=== PATIENT | female | born 1945 | race Caucasian/White ===

== ENCOUNTER → 2016-07-08 | Outpatient (CLI) | payer MEDICARE ==
--- NOTE | 2016-07-09 10:23 | MM ---
Reason for exam: screening (asymptomatic). Last mammogram was performed 18 years and 3 months ago. History: Patient is postmenopausal. Excisional biopsy of the right breast. Physical Findings: A clinical breast exam by your physician is recommended on an annual basis and results should be correlated with mammographic findings. MG 3D Screening Mammo W/Cad Bilateral CC and MLO view(s) were taken. No prior studies available for comparison. There are scattered fibroglandular densities. There is no discrete abnormality. ASSESSMENT: Negative, BI-RAD 1 RECOMMENDATION: Routine screening mammogram of both breasts in 1 year.
== END | disposition home or self-care (01) ==
LOC: RADMAMWWP 08:26
PROVIDERS: ATTEND Family Medicine
DX: Z12.31 Encounter for screening mammogram for malignant neoplasm of breast (principal)
CPT/HCPCS: 77052; 77063; G0202

== ENCOUNTER → 2016-08-24 | Outpatient (CLI) | payer MEDICARE ==
[2016-08-24 09:44] LABS: ALT 31 U/L (9-52); AST 25 U/L (14-36); Alkaline Phosphatase 82 U/L (38-126); Anion Gap 11 mmol/L; Blood Urea Nitrogen 18 mg/dL (7-17); Calcium 9.3 mg/dL (8.4-10.2); Carbon Dioxide 28 mmol/L (22-30); Chloride 103 mmol/L (98-107); Cholesterol 149 mg/dL (<200); Glucose 98 mg/dL (74-99); HDL Cholesterol 64 mg/dL (40-60); Non-African American GFR(MDRD) >60 (>60 ml/min/1.73 sqM); Potassium 4.4 mmol/L (3.5-5.1); Sodium 142 mmol/L (137-145); Total Protein 6.7 g/dL (6.3-8.2); Triglycerides 81 mg/dL (<150)
== END | disposition home or self-care (01) ==
LOC: LABWHC1 08:21
PROVIDERS: ATTEND Internal Medicine Interventional Cardiology
DX: E78.2 Mixed hyperlipidemia (principal)
CPT/HCPCS: 36415; 80053; 80061

== ENCOUNTER 2016-09-01 05:44 | Day surgery (SDC) | payer MEDICARE ==
[2016-08-28 15:48] VITALS: BMI 27.3
[2016-09-01] MEDS ORDERED: SODIUM CHLORIDE 0.9% 1,000 ML IV SCH ×2 (05:55→07:30)
[2016-09-01 06:55] VITALS: RESP 16
[2016-09-01] MEDS ORDERED: BENZOCAINE SPRAY 100 APPLIC/CAN MUCOUS MEM ONE ×2 (06:59→07:10)
[2016-09-01] MEDS ORDERED: PROPOFOL 10 MG/ML 20 ML VIAL IV ONE (06:59)
[2016-09-01] MEDS ORDERED: LIDOCAINE 1% INJ 10MG/ML (20 ML MDV) ONE (06:59)
--- NOTE | 2016-09-01 07:41 | ECHOT ---
DATE OF SERVICE: INDICATION: Evaluation left atrial appendage. PROCEDURE: After explaining the procedure to the patient, risk and the complications, blood pressure, heart rate, O2 saturation were monitored. The throat was sprayed with Cetacaine. She received sedation per anesthesia department. The probe was introduced in the esophagus without difficulty. Images were obtained. Following that, the probe was removed. There was no immediate complication. FINDINGS: Left atrial size is dilated measuring 5.1 cm. The left atrial appendage is normal. Left ventricular size is normal. There is evidence of global hypokinesis, estimated ejection fraction of 35%. The aortic valve, mitral valve, tricuspid valve and pulmonic valve are normal. Descending thoracic aorta appears to be normal. No pericardial effusion was noted. Contrast bubble study revealed no evidence of shunting across the interatrial septum. Doppler pulse wave and color Doppler obtained and revealed moderate mitral and tricuspid regurgitation. There was no evidence of shunting across the interatrial septum. CONCLUSION: 1. Dilated left atrium. 2. Normal left ventricular size with severe global hypokinesis. 3. Moderate mitral and tricuspid regurgitation with mild pulmonary hypertension. 4. No evidence of shunting across the interatrial septum. 5. Normal appearance of the descending thoracic aorta.
--- NOTE | 2016-09-01 07:57 | CE ---
DATE OF SERVICE: CARDIOVERSION PROCEDURE NOTE INDICATION: Atrial fibrillation. PROCEDURE: After explaining the procedure to the patient, its risks and complications, after obtaining sedation state per anesthesia department and performing transesophageal echocardiogram, a synchronized biphasic cardioversion using 200 joules, 300 joules and subsequent 360 joules was successful in restoring normal sinus rhythm. There was no immediate complication.
[2016-09-01] MEDS ORDERED: DABIGATRAN 150 MG CAP PO SCH (09:00)
[2016-09-01] MEDS ORDERED: TIMOLOL 0.5% OPHTH DROPS 5 ML BTL BOTH EYES SCH (09:00)
[2016-09-01] MEDS ORDERED: AMIODARONE 200 MG TAB PO SCH (09:00)
[2016-09-01] MEDS ORDERED: amLODIPine 2.5 MG TAB PO SCH (09:00)
[2016-09-01] MEDS ORDERED: HYDROCHLOROTHIAZIDE 25 MG TAB PO SCH (09:00)
[2016-09-01 12:55] VITALS: TEMP 97
[2016-09-01 13:02] VITALS: BP 125/69; PULSE 49
[2016-09-01] MEDS ORDERED: ATORVASTATIN 20 MG TAB PO SCH (21:00)
== END 2016-09-01 09:59 | disposition home or self-care (01) ==
LOC: CATHCVL 05:44
PROVIDERS: ATTEND Internal Medicine Interventional Cardiology
DX: I08.1 Rheumatic disorders of both mitral and tricuspid valves (principal); I27.2 Other secondary pulmonary hypertension; I51.7 Cardiomegaly; I48.2 Chronic atrial fibrillation; Z79.01 Long term (current) use of anticoagulants; I10 Essential (primary) hypertension; E78.2 Mixed hyperlipidemia; Z79.899 Other long term (current) drug therapy; Z88.8 Allergy status to other drugs, medicaments and biological substances
CPT/HCPCS: 93312; 93320; 93005; 93325; 92960; J2001; J2704

== ENCOUNTER → 2016-12-11 | Outpatient (CLI) | payer MEDICARE ==
[2016-12-11 09:13] LABS: CH 31.6; CHCM 33.6; HCT 41.8 % (34.0-46.0); HDW 2.46; HGB 14.2 gm/dL (11.4-16.0); MCHC 33.9 g/dL (31.0-37.0); MCV 94.5 fL (80.0-100.0); Mean Platelet Volume 7.3; RBC 4.43 m/uL (3.80-5.40); RDW 12.8 % (11.5-15.5); WBC 6.6 k/uL (3.8-10.6)
[2016-12-11 09:41] LABS: Anion Gap 9 mmol/L; Blood Urea Nitrogen 22 mg/dL (7-17); Calcium 9.2 mg/dL (8.4-10.2); Carbon Dioxide 29 mmol/L (22-30); Chloride 103 mmol/L (98-107); Glucose 98 mg/dL (74-99); Non-African American GFR(MDRD) >60 (>60 ml/min/1.73 sqM); Potassium 4.2 mmol/L (3.5-5.1); Sodium 141 mmol/L (137-145)
== END | disposition home or self-care (01) ==
LOC: LABWHC1 07:46
PROVIDERS: ATTEND Internal Medicine Clinical Cardiac Electrophysiology
DX: E04.8 Other specified nontoxic goiter (principal); I10 Essential (primary) hypertension; I42.0 Dilated cardiomyopathy; I48.1 Persistent atrial fibrillation; I49.3 Ventricular premature depolarization
CPT/HCPCS: 36415; 80048; 84439; 84443; 85027

== ENCOUNTER 2016-12-22 06:11 | Day surgery (SDC) | payer MEDICARE ==
[2016-12-18 09:49] VITALS: BMI 27.3
[2016-12-22] MEDS: SODIUM CHLORIDE 0.9% 1,000 ML IV SCH (06:49)
[2016-12-22] MEDS ORDERED: ePHEDrine 50 MG/ML 1 ML AMP ONE (07:22)
[2016-12-22] MEDS ORDERED: HEPARIN SODIUM,PORCINE/D5W PMX 25,000 UNIT/500 ML BAG IV ONE (07:22)
[2016-12-22] MEDS ORDERED: LIDOCAINE 1% INJ 10MG/ML (20 ML MDV) ONE (07:22)
[2016-12-22] MEDS ORDERED: PHENYLEPHRINE-0.9% NACL SYG 1 MG/10 ML SYRINGE ONE (07:22)
[2016-12-22] MEDS ORDERED: PROPOFOL 10 MG/ML 20 ML VIAL IV ONE (07:22)
[2016-12-22] MEDS ORDERED: fentaNYL (PF) 50 MCG/ML 2 ML AMP ONE (07:22)
[2016-12-22] MEDS ORDERED: ATROPINE SULFATE 0.1 MG/ML 10ML SYRINGE ONE (07:22)
[2016-12-22] MEDS ORDERED: ROCURONIUM BROMIDE 10 MG/ML 10 ML VIAL IV ONE (07:22)
[2016-12-22] MEDS ORDERED: SUCCINYLCHOLINE CHLORIDE 100 MG/5 ML SYR IV ONE (07:22)
[2016-12-22] MEDS ORDERED: FUROSEMIDE 10 MG/ML 2 ML VIAL ONE (07:22)
[2016-12-22] MEDS ORDERED: HEPARIN SODIUM 1,000 UNIT/ML VIAL ONE (07:22)
[2016-12-22] MEDS ORDERED: MIDAZOLAM 2 MG/2 ML VIAL ONE (07:22)
[2016-12-22] MEDS ORDERED: HEPARIN SODIUM,PORCINE 5,000 UNIT/ML 1 ML VIAL ONE (07:22)
[2016-12-22] MEDS ORDERED: LIDOCAINE 2% INJ 20 MG/ML SQ ONE (08:37)
[2016-12-22] MEDS ORDERED: LACTATED RINGERS 1,000 ML IV ONE (13:00)
[2016-12-22] MEDS ORDERED: HEPARIN SODIUM (1,000 UNIT/ML) 1,000 UNIT in SODIUM CHLORIDE 0.9% 1,000 ML IRRIGATION ONE (13:00)
[2016-12-22] MEDS ORDERED: IOHEXOL 350 MG/ML 100 ML BOTTLE INJ ONE ×3 (13:31)
--- NOTE | 2016-12-22 17:45 | P.PCN ---
Preoperative Diagnosis: Procedure A. fib ablation Indication Symptomatic persistent, recurrent atrial fibrillation that has failed Therapy and is associated with tachycardia mediated cardio myopathy Dilated left atrium 6.4 x 5.2 cm on intracardiac echo A. fib ablation details Pulmonary vein isolation, cryoablation, all 4 pulmonary veins to completely isolated Linear ablation, cavo tricuspid systems Linear ablation, roof of left atrium Linear ablation Anterior mitral isthmus line, just anterior to the left atrial appendage Focal ablation left atrial septum and right atrial septum in areas of fractionation and split potentials, resulting in organization to the tachycardia with atrial cycle length of about 320-340 ms, concentric activation Repeat mapping of SVT (atrial tachycardia), broad area of earliest activation around the os of the coronary sinus. RF energy application resulted in disorganization to atrial fibrillation Electrical cardioversion performed at this point Procedures performed Femoral artery cannulation for hemodynamic monitoring and sampling through the procedure, patient under general anesthesia Pulmonary vein isolation, [id number] CS pacing and recording 3-D mapping of the left atrium and right atrium, multiple 3-D maps including pulmonary vein mapping, left atrial mapping, cavo tricuspid isthmus mapped, right atrial map along with coronary sinus map Linear ablation, left atrial roof Linear ablation anterior mitral isthmus line Focal ablation left and right internal atrial septum 3-D mapping of the cavo tricuspid isthmus Linear ablation, right atrial flutter cavo tricuspid, isthmus conduction time greater than 160 ms 3-D activation mapping of the right atrium and coronary sinus followed by Focal ablation posterior low right atrium just posterior to the coronary sinus os Electrical cardioversion for atrial fibrillation Long procedure requiring multiple 3-D maps including portage mapping and activation mapping as well as multiple lenient and focal ablation areas, all distinct and separate finally resulting in organization of the atrial fibrillation around the os of the coronary sinus as described above Postoperative Diagnosis: Procedure(s) Performed: Implants: Condition: stable Disposition: floor Indications for Procedure: Operative Findings: Description of Procedure:
[2016-12-22] MEDS ORDERED: ACETAMINOPHEN TAB 325 MG TAB PO PRN (17:48)
[2016-12-22] MEDS ORDERED: ATORVASTATIN 20 MG TAB PO SCH (21:00)
[2016-12-22] MEDS: FAMOTIDINE 20 MG TAB PO SCH (22:52)
[2016-12-22] MEDS: DABIGATRAN 150 MG CAP PO SCH (22:52)
[2016-12-23] MEDS: SODIUM CHLORIDE 0.9% 1,000 ML IV SCH (06:10)
[2016-12-23 06:42] LABS: Basophils % (A) 0 %; CH 31.7; CHCM 32.9; Eosinophils % (A) 0 %; HCT 38.6 % (34.0-46.0); HDW 2.25; HGB 12.5 gm/dL (11.4-16.0); Luc # (Auto) 0.16; Luc % (Auto) 2; Lymphocytes # (A) 1.1 k/uL (1.0-4.8); Lymphocytes % (A) 11 %; MCH 31.5 pg (25.0-35.0); MCHC 32.5 g/dL (31.0-37.0); Mean Platelet Volume 7.7; Monocytes # (A) 0.8 k/uL (0-1.0); Monocytes % (A) 8 %; Neutrophils % (A) 80 %; RBC 3.98 m/uL (3.80-5.40); RDW 13.1 % (11.5-15.5); WBC 10.1 k/uL (3.8-10.6); WBC (Perox) 10.39
[2016-12-23 07:05] LABS: ALT 35 U/L (9-52); AST 75 U/L (14-36); Alkaline Phosphatase 64 U/L (38-126); Anion Gap 9 mmol/L; Blood Urea Nitrogen 19 mg/dL (7-17); Calcium 8.1 mg/dL (8.4-10.2); Carbon Dioxide 27 mmol/L (22-30); Chloride 103 mmol/L (98-107); Glucose 101 mg/dL (74-99); Magnesium 1.9 mg/dL (1.6-2.3); Non-African American GFR(MDRD) >60 (>60 ml/min/1.73 sqM); Potassium 3.5 mmol/L (3.5-5.1); Sodium 139 mmol/L (137-145); Total Bilirubin 1.3 mg/dL (0.2-1.3); Total Protein 5.6 g/dL (6.3-8.2)
[2016-12-23] MEDS: FAMOTIDINE 20 MG TAB PO SCH (08:20)
[2016-12-23] MEDS: DABIGATRAN 150 MG CAP PO SCH (08:20)
[2016-12-23] MEDS ORDERED: amLODIPine 2.5 MG TAB PO SCH (09:00)
[2016-12-23] MEDS ORDERED: HYDROCHLOROTHIAZIDE 25 MG TAB PO SCH (09:00)
[2016-12-23] MEDS ORDERED: TIMOLOL 0.5% OPHTH DROPS 5 ML BTL BOTH EYES SCH (09:00)
[2016-12-23] MEDS ORDERED: SPIRONOLACTONE 25 MG TAB PO SCH (09:15)
[2016-12-23 09:54] VITALS: RESP 20
[2016-12-23 16:24] VITALS: BP 112/80; PULSE 90; TEMP 97
--- NOTE | 2016-12-23 19:58 | CC ---
DATE OF SERVICE: Please see my summary procedure note that is dictated separately on Dragon. This is the full detailed description of the procedure. Mrs. Banegas has persistent drug-refractory atrial fibrillation with QT prolongation with cardiomyopathy, possibly tachycardia and also PVCs in sinus rhythm with a very wide QRS. She was brought in for atrial fibrillation ablation. The plan was to first proceed with pulmonary vein isolation and then subsequently linear and focal ablation as clinically indicated during the procedure. The patient was brought to the EP lab in a fasting state. Written informed consent was obtained prior to the procedure. The procedure was performed under general anesthesia. After initial muscle relaxant use, muscle relaxants were not given in order to be able to assess ( ) during the procedure. She was prepped and draped as per protocol. A full cryo setup with standard ( ) of the cry balloon and the cryo tools was performed. Femoral access was obtained in the right and left groins. Arterial access in the femoral artery was obtained for hemodynamic maintain and sampling. Her blood pressure remained stable throughout the procedure. Sampling was performed throughout the procedure, and this was removed at the end of the procedure. This was a very long procedure involving multiple pulmonary vein isolation for multiple linear and focal ablation sites which were distant and separate. Venous sheaths were placed in the right and left femoral veins. Diagnostic catheters were placed in the high right atrium, His bundle area, coronary sinus and the ventricle. Multiple catheters and multiple sheaths were used. Multiple exchanges were performed throughout the procedure, depending upon the nature of the ablation and mapping performed. First, intracardiac echocardiography was performed. The LV function was near normal. The left atrium was very dilated, 6.4 x 5.2 cm, depending upon the dimensions measured. Right and left transseptal catheterization was performed under intracardiac echo guidance. Access was obtained in the left atrium. ACT was maintained above 300. Finally when she was in sinus rhythm, she was in junctional rhythm for a long time, QRS 93 ms, QT 465 ms, AH interval 78 ms, HV interval 58 ms. Right and left transseptal catheterization was performed. RA pressure 9/3/6 and LA pressure 16/10/4 mmHg. First pulmonary vein isolation was performed using the cryoballoon and first the left superior followed by the left inferior followed by the right superior and then the right inferior veins sequentially were ablated. The left veins appeared to be common veins. For the superior vein 66 seconds followed by an 88-second cryolesion and then subsequently 104-second cryolesion was applied, with complete isolation of the pulmonary veins. The minimal ( ) temperature was 20.9 degrees Celsius in the esophagus; hence the abbreviated cryofreezes. The left inferior vein was then ablated with a 107- followed by 117-second lesion with complete isolation. Both superior and inferior veins showed entrance block at the end of this part of the procedure. Then the right-sided veins were ablated with phrenic nerve stimulation, and the phrenic nerve was intact during and after the end of this part of the procedure for the right superior vein. Two cryolesions were applied; 184 x 180 seconds and for the right inferior vein, 2 lesions, 180 and 180 seconds applied. Complete isolation and entrance block was demonstrated at the end of the procedure. Following this, the patient remained in atrial fibrillation without any significant organization. Therefore the cryosheath was exchanged once again for a regular long sheath and irrigated-tip RF ablation catheter was placed in the left atrium. Three-D mapping of the left atrium and pulmonary veins was performed. At first, voltage mapping of the pulmonary veins was performed, and it was demonstrated that the pulmonary veins were completely quiescent without any electrical activity. Next, the posterior and the anterior pineda of the left atrium were mapped, and more fractionated signals were noted along the inferior portions of the left atrium, especially in the anterior wall and the septum. Posteriorly the fractionated areas were closer to the coronary sinus area. Linear ablation was performed along the anterior roof of the LA connecting the right superior to the left superior veins. A complete anatomic line of block was made; however, atrial fibrillation continued with mild increase in organization of the atrial activity. Linear ablation was then performed anteriorly along the LA, avoiding the aortic root. This was the anterior mitral isthmus line from the roof to the mitral isthmus. Complete anatomic line was made. This resulted in slight increase in organization, but the atrial fibrillation continued. The next step in the mapping process was to ablate the fractionated areas along the septum. Then these areas were ablated (between the anterior antrum of the right superior veins and the transseptal puncture site), and the atrial fibrillation began to get organized. After completion of the lesion set on the left side of the septum, corresponding lesion sets were then applied on the right side of the septum, which resulted in further organization of the tachycardia. At this point we had to withdraw the catheter from the left atrium into the right atrium, and a 3-D map of the right atrium was then performed. Anatomic map of the right atrium was performed. RF applications were applied along the right side of the septum, resulting in further organization. Three-D mapping of the right atrial isthmus was performed with intracardiac ( ) and scar mapping and a linear ablation of the cavotricuspid isthmus was performed and a complete line of block was made. This resulted in further organization into an atrial tachycardia with a cycle length of about 338 ms. Following this, repeat mapping of the right atrium and the coronary sinus was performed. This was activation mapping to find the source of the tachycardia/source of atrial fibrillation. The earliest activation was noted around the mouth of the coronary sinus but not within it. This was more on the superior and the posterior aspects outside the coronary sinus os, bordering the os of the coronary sinus. When RF applications were applied here, the patient went back into atrial fibrillation. At this point, electrical cardioversion was performed and the patient successfully converted to sinus rhythm. Following this, an EP study was performed with pacing in the high right atrium and pacing in the coronary sinus. AH interval 78 ms, HV interval 58 ms. Brief pacing in the ventricle was performed. We did not note any PVCs. She was in junctional rhythm, and coronary sinus and atrial pacing was performed during this time. IV atropine, multiple doses, were given at this point. No atrial fibrillation induced with atrial pacing. NJ interval was 209 ms, QRS 135 ms. QT was 442 ms, sinus cycle length 872 ms. This was a very long procedure involving pulmonary vein isolation of all 4 veins followed by scar mapping of the left atrium (voltage mapping of the left atrium) and multiple maps of the right atrium for different tachycardias that were mapped, as described above. Pulmonary vein isolation, linear ablation along the roof of the LA, linear ablation along the anterior (mitral line), focal ablation along the septum, both right- and left-sided, linear ablation in the cavotricuspid isthmus for atrial flutter, and mapping and ablation around the posterior/inferior right atrium outside the coronary sinus os, followed ultimately by electrical cardioversion, were performed.
--- NOTE | 2016-12-23 20:05 | LTR ---
December 23, 2016 RE: Yessi Banegas Dear Unique Yessi Banegas underwent an extensive atrial fibrillation ablation involving successful pulmonary vein isolation of all 4 pulmonary veins followed by a linear ablation in the right and the left atria. Ultimately after multiple linear ablations (catheter-based Maze procedure), her atrial fibrillation organized to an atrial tachycardia that seemed to be originating deep in the area around the coronary sinus os. When I ablated this site, she went back into atrial fibrillation, and therefore at this point she was electrically cardioverted. I believe she has a deeper focus within the pineda of the coronary sinus in its very proximal portion and may require extensive ablation in this area in the future. Unfortunately drug therapy is not an optimal choice for her because her QT interval at baseline seems to be a little prolonged, and it was prolonged with amiodarone. Therefore even sotalol and dofetilide should not be used. In terms of use of flecainide, she does have sinus bradycardia, and this would result in further signaling of bradycardia and need for permanent pacing. Therefore at this point I think that watchful observation along with long-term anticoagulation should be her best option. Her intracardiac echo showed that her left atrium is significantly enlarged, almost greater than 6 cm in lateral dimension. I will also be recommending a cardiac MRI to assess her right and left ventricles, particularly the left ventricle, but of the PVCs she has. We have noted PVCs, especially when she is in sinus rhythm, and they have a very broad QRS width. She also develops cardiomyopathy with atrial fibrillation quite easily. We will definitely be keeping a close eye on Smitha and making further recommendations, depending upon her course. Thank you for entrusting us with the care of your patient. Warm regards. Sincerely, LESLI COLBY MD
--- NOTE | 2016-12-24 10:12 | DS ---
DATE OF ADMISSION: 12/22/2016 DATE OF DISCHARGE: 12/23/2016 Mrs. 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 Her QT interval is mildly prolonged even on amiodarone and therefore I have recommended that she come off amiodarone and also recommended that sotalol and dofetilide should not be used because they would also prolong her QT interval. When in sinus rhythm she has sinus bradycardia and therefore I also avoided flecainide use. In view of the fact that she develops tachycardia mediated cardiomyopathy with symptoms, an A. fib ablation was recommended. However, I had discussed with her at that because she has persistent atrial fibrillation the success rate is much lower than her paroxysmal atrial fibrillation. She underwent atrial fibrillation ablation with pulmonary vein isolation and linear atrial fibrillation ablation in the roof, anterior mitral annulus and focal ablation in the septum both on the left side as well as right side resulting in organization to an atrial tachycardia. She also underwent atrial flutter. This atrial tachycardia was mapped around the coronary sinus. It seemed to be a broad area of early activation around the mouth the coronary sinus rather than within it. When RF applications were delivered here, patient went back into atrial fibrillation and therefore, she was electrically cardioverted at that point and no further mapping was possible. She has been doing well. Overnight she did have period of ventricular bigeminy which she has known premature ventricular contractions also and the PVCs are described in my H&P seem to be identical in morphology to the ones experienced. However, the 12-lead ECG shows a very broad wide QRS PVCs most likely epicardial or deep myocardial focus. Her groins are healed well. She denies any chest discomfort. No undue shortness of breath. No chest discomfort. No pleuritic chest discomfort. No dizziness, lightheadedness. No swallowing problems. She has a mild cough without any expectoration. She is afebrile. Her vitals are stable. Blood pressure is 107/50 mmHg. Heart rates in the 60s. She is afebrile, 96.9 degrees Fahrenheit. Heart sounds are normal. No murmurs. No gallops. No rub. Breath sounds are normal and there are no rhonchi. No crackles. Abdomen is soft. Extremities are warm. Groin is healed well. No JVD. IMPRESSION: 1. Persistent atrial fibrillation, symptomatic and has failed antiarrhythmic drug therapy. 2. 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 3. Premature ventricular contractions that are evident during sinus rhythm. These PVCs have a left bundle branch block morphology and a very wide but with transition in V3. Upright QRSs in the inferior leads and fractionated negative QRSs in leads I and aVL. SUGGEST: Today she may go home. Her QT interval appears long to me even at baseline. On intracardiac echo her left atrial size is significantly enlarged between 5.2 to 6.4 cm depending upon the dimension being measured. Her LV function was near normal by intracardiac echo. Suggest discharge home on current medications. She will continue atorvastatin and amlodipine, but she must continue Pradaxa lifelong. Three days of colchicine have been prescribed in case she developed pleuritic chest pain. She will see Dr. Person in about 1 to 2 weeks. In view of the fact that she has developed this cardiomyopathy, it is possibly because of atrial fibrillation; however, her PVCs are extremely wide and she says her QT interval abnormality at baseline and therefore it would be prudent to get a cardiac MRI to see if this is truly a structurally normal myocardium or not. If not, then that would go against the diagnosis of tachycardia mediated cardiomyopathy. If she is stable she will be discharged home today.
== END 2016-12-23 19:39 ==
LOC: CATHEP 06:11 → 6SEL 14:49 → CATHEP 12-23 19:39
PROVIDERS: ATTEND Internal Medicine Clinical Cardiac Electrophysiology
DX: I48.1 Persistent atrial fibrillation (principal); I42.0 Dilated cardiomyopathy; I49.3 Ventricular premature depolarization; I49.5 Sick sinus syndrome; I10 Essential (primary) hypertension; E78.2 Mixed hyperlipidemia; H40.9 Unspecified glaucoma; Z79.02 Long term (current) use of antithrombotics/antiplatelets; Z79.899 Other long term (current) drug therapy; Z88.8 Allergy status to other drugs, medicaments and biological substances
CPT/HCPCS: 93613; 92960; 93662; 93656; 93657; 80053; 83735; 85025; C1894 ×4; C1769 ×4; C1730 ×3; C1759; C1893; C1733; C1766; C1732; J2001; Q9967; J1644

== ENCOUNTER → 2017-02-02 | Outpatient (CLI) | payer MEDICARE ==
[2017-02-02 09:56] LABS: ALT 27 U/L (9-52); AST 19 U/L (14-36); Alkaline Phosphatase 75 U/L (38-126); Anion Gap 9 mmol/L; Blood Urea Nitrogen 18 mg/dL (7-17); Calcium 9.3 mg/dL (8.4-10.2); Carbon Dioxide 27 mmol/L (22-30); Chloride 104 mmol/L (98-107); Cholesterol 138 mg/dL (<200); Glucose 91 mg/dL (74-99); HDL Cholesterol 58 mg/dL (40-60); Non-African American GFR(MDRD) >60 (>60 ml/min/1.73 sqM); Potassium 4.4 mmol/L (3.5-5.1); Sodium 140 mmol/L (137-145); Total Bilirubin 0.9 mg/dL (0.2-1.3); Total Protein 6.3 g/dL (6.3-8.2); Triglycerides 76 mg/dL (<150)
== END | disposition home or self-care (01) ==
LOC: LABWHC1 08:44
PROVIDERS: ATTEND Internal Medicine Interventional Cardiology
DX: E78.2 Mixed hyperlipidemia (principal)
CPT/HCPCS: 36415; 80053; 80061

== ENCOUNTER 2017-02-10 06:23 | Day surgery (SDC) | payer MEDICARE ==
[2017-02-05 10:16] VITALS: BMI 26.6
[2017-02-10] MEDS ORDERED: ASPIRIN 325 MG TAB PO ONE (06:29)
[2017-02-10] MEDS ORDERED: SODIUM CHLORIDE 0.9% 1,000 ML in EMPTY BAG 1 BAG IV ONE (06:29)
[2017-02-10 07:03] VITALS: TEMP 98.1
[2017-02-10 07:06] LABS: Basophils # (A) 0.1 k/uL (0-0.2); Basophils % (A) 1 %; CH 31.6; CHCM 33.7; Eosinophils # (A) 0.2 k/uL (0-0.7); Eosinophils % (A) 2 %; HCT 43.2 % (34.0-46.0); HDW 2.26; HGB 14.7 gm/dL (11.4-16.0); Luc # (Auto) 0.14; Luc % (Auto) 2; Lymphocytes # (A) 1.5 k/uL (1.0-4.8); Lymphocytes % (A) 20 %; MCV 94.2 fL (80.0-100.0); Mean Platelet Volume 7.3; Monocytes # (A) 0.6 k/uL (0-1.0); Monocytes % (A) 8 %; Neutrophils # (A) 5.1 k/uL (1.3-7.7); Neutrophils % (A) 67 %; RBC 4.59 m/uL (3.80-5.40); RDW 12.8 % (11.5-15.5); WBC 7.7 k/uL (3.8-10.6); WBC (Perox) 7.38
[2017-02-10] MEDS ORDERED: diphenhydrAMINE 50 MG/ML 1 ML VIAL ONE (07:31)
[2017-02-10] MEDS ORDERED: VERAPAMIL 2.5 MG/ML 2 ML AMP ONE (07:31)
[2017-02-10] MEDS ORDERED: fentaNYL (PF) 50 MCG/ML 2 ML AMP ONE (07:31)
[2017-02-10] MEDS ORDERED: LIDOCAINE 2% INJ 20 MG/ML (20 ML MDV) ONE (07:31)
[2017-02-10] MEDS ORDERED: diphenhydrAMINE 50 MG/ML 1 ML VIAL IVP ONE (07:38)
[2017-02-10] MEDS ORDERED: fentaNYL (PF) 50 MCG/ML 2 ML AMP IV ONE (07:38)
[2017-02-10] MEDS: METOPROLOL TARTRATE 5 MG/5 ML VIAL IVP ONE ×2 (07:40→08:12)
[2017-02-10] MEDS ORDERED: METOPROLOL TARTRATE 5 MG/5 ML VIAL IVP ONE (07:42)
[2017-02-10 08:32] LABS: Site SVC
[2017-02-10 08:33] LABS: Site RV BASELINE
[2017-02-10 08:33] LABS: Site RV
[2017-02-10 08:34] LABS: Site LOW RA; Site RT PA
[2017-02-10 08:34] LABS: Site HIGH RA; Site MID RA
[2017-02-10 08:35] LABS: Site FA
[2017-02-10 08:35] LABS: Site HIGH IVC
[2017-02-10 08:36] LABS: Site IVC
[2017-02-10] MEDS ORDERED: RX INFO: IV CONTRAST WAS GIVEN 1 EACH MISC MISCELLANE PRN (08:38)
[2017-02-10] MEDS ORDERED: guaiFENesin 600 MG TABLET.ER PO PRN (08:39)
[2017-02-10] MEDS ORDERED: LORATADINE 10 MG TAB PO PRN (08:39)
[2017-02-10] MEDS ORDERED: FAMOTIDINE 20 MG TAB PO PRN (08:39)
[2017-02-10] MEDS ORDERED: SODIUM CHLORIDE 0.9% 1,000 ML IV SCH (08:45)
[2017-02-10] MEDS ORDERED: amLODIPine 2.5 MG TAB PO SCH (09:00)
[2017-02-10] MEDS ORDERED: MULTIVITAMINS, THERA 1 EACH TAB PO SCH (09:00)
[2017-02-10] MEDS ORDERED: METOPROLOL TARTRATE 25 MG TAB PO SCH (09:00)
[2017-02-10] MEDS ORDERED: DABIGATRAN 150 MG CAP PO SCH (09:00)
[2017-02-10] MEDS ORDERED: SPIRONOLACTONE 25 MG TAB PO SCH (09:00)
[2017-02-10] MEDS ORDERED: TIMOLOL 0.5% OPHTH DROPS 5 ML BTL BOTH EYES SCH (09:00)
[2017-02-10 13:10] VITALS: BP 102/73; PULSE 110; RESP 18
[2017-02-10] MEDS ORDERED: ATORVASTATIN 20 MG TAB PO SCH (21:00)
--- NOTE | 2017-02-11 08:21 | CC ---
PROCEDURE PERFORMED: Right heart catheterization. Mrs. Banegas is a 71 year old female with a known history of atrial fibrillation and atrial flutter who was found to have evidence of atrial septal defect on cardiac MRI. She has history of dyspnea on exertion. In view of that, recommendation was made regarding right heart catheterization. The procedure as well as risks and complications were discussed with the patient who is in full understanding and agreement. PROCEDURE: The patient was brought to the manager cath lab in a fasting semisedated state. After she received Fentanyl and Benadryl, and after achieving moderate conscious sedated state, using guidewire exchange technique, the IV axis in the right brachial was exchanged for a 6 [place] sheath. Following that, right heart catheterization performed using [place] Jadyn catheter. Multiple samples and pressures were calculated. Following that, catheter and sheath were removed. Following that a femoral artery sample was obtained. Following that the patient was returned to her room in stable condition. There were no immediate complications. FINDINGS: SATURATION: Superior vena cava saturation of 65.9. Inferior vena cava of 71.9. High right atrium 69.3, low RA 67.6. Mid RA 68.8. RV 70.7. RV in flow 69.6. PA 70.5% and right pulmonary artery 69.5, capillary wedge of 98%, arterial saturation 95%. Cardiac output by thermal dilution of 4.0 L per minute and by Fredis of 4.7 L per minute. Pulmonary capillary wedge pressure V wave of 10, mean of 8 mmHg. Pulmonary artery systolic pressure of 20 with an end diastolic of 12 and a mean of 13 mmHg. Right ventricular systolic pressure of 22 with an end diastolic of 4. Right atrium V wave of 7 with a mean of 6 mmHg. There was no significant shunt. The shunt ratio was below 1.5. CONCLUSION: No evidence of significant shunting across the atrial septal defect. Duration of the procedure: 30 minutes. [facility]
== END 2017-02-10 11:52 | disposition home or self-care (01) ==
LOC: CATHCVL 06:23
PROVIDERS: ATTEND Internal Medicine Interventional Cardiology
DX: I48.1 Persistent atrial fibrillation (principal); Z79.01 Long term (current) use of anticoagulants; I48.92 Unspecified atrial flutter; I49.3 Ventricular premature depolarization; I42.9 Cardiomyopathy, unspecified; I10 Essential (primary) hypertension; E78.2 Mixed hyperlipidemia; H40.9 Unspecified glaucoma; Z79.899 Other long term (current) drug therapy; Z88.8 Allergy status to other drugs, medicaments and biological substances
CPT/HCPCS: 93451; 85018; 82810; 85025; 99152; 99153; C1769 ×3; C1751; C1894 ×2; J1200; J3010

== ENCOUNTER → 2017-08-16 | Outpatient (CLI) | payer MEDICARE ==
[2017-08-16 09:08] LABS: ALT 24 U/L (9-52); AST 22 U/L (14-36); Alkaline Phosphatase 76 U/L (38-126); Anion Gap 11 mmol/L; Blood Urea Nitrogen 20 mg/dL (7-17); Calcium 9.5 mg/dL (8.4-10.2); Carbon Dioxide 29 mmol/L (22-30); Chloride 101 mmol/L (98-107); Cholesterol 131 mg/dL (<200); Glucose 94 mg/dL (74-99); HDL Cholesterol 47 mg/dL (40-60); LDL Cholesterol,Calculated 72 mg/dL (0-99); Potassium 4.9 mmol/L (3.5-5.1); Sodium 141 mmol/L (137-145); Total Bilirubin 0.9 mg/dL (0.2-1.3); Total Protein 6.5 g/dL (6.3-8.2); Triglycerides 59 mg/dL (<150)
== END | disposition home or self-care (01) ==
LOC: LABWHC1 08:12
PROVIDERS: ATTEND Internal Medicine Interventional Cardiology
DX: E78.2 Mixed hyperlipidemia (principal)
CPT/HCPCS: 36415; 80053; 80061

== ENCOUNTER → 2018-02-17 | Outpatient (CLI) | payer MEDICARE | END | disposition home or self-care (01) | LOC: LABWHC1 07:47 | PROVIDERS: ATTEND Family Medicine | DX: E78.2 Mixed hyperlipidemia (principal); E04.8 Other specified nontoxic goiter; L65.9 Nonscarring hair loss, unspecified | CPT/HCPCS: 36415; 80061; 84443; 84450; 84460 ==

== ENCOUNTER → 2018-08-25 | Outpatient (CLI) | payer MEDICARE ==
[2018-08-25 18:11] LABS: Albumin 4.1 g/dL (3.80-4.90); Albumin/Globulin Ratio 2.56 (1.60-3.17); Anion Gap 10.8 mmol/L (4.00-12.00); Calcium 9.2 mg/dL (8.7-10.3); Carbon Dioxide 27.2 mmol/L (21.6-31.8); Globulin 1.6 g/dL (1.6-3.3); LDL Cholesterol,Calculated 73.8 mg/dL (0.0-131.0); Potassium 4.4 mmol/L (3.5-5.5); Total Bilirubin 0.6 mg/dL (0.2-1.2); Total Protein 5.7 g/dL (6.2-8.2); VLDL Calculation 11.2 mg/dL (5.00-40.00)
== END | disposition home or self-care (01) ==
LOC: LABWHC1 08:24
PROVIDERS: ATTEND Internal Medicine Interventional Cardiology
DX: E78.2 Mixed hyperlipidemia (principal)
CPT/HCPCS: 36415; 80053; 80061

== ENCOUNTER 2019-03-09 08:31 | Day surgery (SDC) | payer MEDICARE ==
[2019-03-03 11:23] VITALS: BMI 26.6
[~2019-03-09 08:31] MED LIST: LACTATED RINGERS 1,000 ML IV SCH; LIDOCAINE 1% 20 ML VIAL (10MG/ML) FOR IV START INTRADERMA PRN
[2019-03-09 09:09] VITALS: TEMP 97.9
[2019-03-09] MEDS ORDERED: LIDOCAINE 1% INJ 10MG/ML (20 ML MDV) ONE (09:41)
[2019-03-09] MEDS ORDERED: GLYCOPYRROLATE 0.2 MG/ML 2 ML VIAL ONE (09:41)
[2019-03-09] MEDS ORDERED: PROPOFOL 10 MG/ML 20 ML VIAL IV ONE (09:41)
--- NOTE | 2019-03-09 10:12 | P.GSHP ---
History of Present Illness H&P Date: 03/09/19 CHIEF COMPLAINT: Colon screen HISTORY OF PRESENT ILLNESS: The patient is a 73-year-old female who presents for colon screen. Lower endoscopy was offered for further evaluation and management. PAST MEDICAL HISTORY: Please see list. PAST SURGICAL HISTORY: Please see list. MEDICATIONS: Please see list. ALLERGIES: Please see list. SOCIAL HISTORY: No illicit drug use FAMILY HISTORY: No reports of Crohn disease or ulcerative colitis. REVIEW OF ORGAN SYSTEMS: CONSTITUTIONAL: No reports of fevers or chills. PHYSICAL EXAM: VITAL SIGNS: Stable GENERAL: Well-developed pleasant in no acute distress. HEENT: No scleral icterus. Extraocular movements grossly intact. Moist buccal mucosa. NECK: Supple without lymphadenopathy. CHEST: Unlabored respirations. Equal bilateral excursions. CARDIOVASCULAR: Regular rate and rhythm. Distal 2+ pulses. ABDOMEN: Soft, nontender, nondistended. MUSCULOSKELETAL: No clubbing, cyanosis, or edema. ASSESSMENT: 1. Colon screen. PLAN: 1. Recommend proceeding with a lower endoscopy Past Medical History Past Medical History: Atrial Fibrillation, Hyperlipidemia, Hypertension Additional Past Medical History / Comment(s): glaucoma (had sudrgery) History of Any Multi-Drug Resistant Organisms: None Reported Past Surgical History: Cardiac Ablation, Heart Catheterization, Tonsillectomy, Tubal Ligation Additional Past Surgical History / Comment(s): EYE SURGERY-GLAUCOMA. CARDIOVERSION X 3 Past Anesthesia/Blood Transfusion Reactions: No Reported Reaction Smoking Status: Never smoker - Past Family History Father Family Medical History: Cancer Additional Family Medical History / Comment(s): prostate and colon Son(s) Family Medical History: Cancer Medications and Allergies Home Medications Medication Instructions Recorded Confirmed Type Atorvastatin [Lipitor] 20 mg PO HS 01/06/14 03/09/19 History Dabigatran [Pradaxa] 150 mg PO DAILY 01/06/14 03/09/19 History amLODIPine [Norvasc] 2.5 mg PO DAILY 08/28/16 03/03/19 History Spironolactone [Aldactone] 25 mg PO DAILY #30 tab 12/23/16 03/09/19 Rx Multivitamins, Thera [Multivitamin 1 tab PO DAILY 02/05/17 03/09/19 History (formulary)] Metoprolol Tartrate 25 mg PO BID 02/10/17 03/03/19 History Allergies Allergy/AdvReac Type Severity Reaction Status Date / Time No Known Allergies Allergy Verified 03/03/19 11:14 Surgical - Exam Vital Signs Temp Pulse Resp BP Pulse Ox 97.9 F 46 L 16 117/68 98 03/09/19 08:57 03/09/19 08:57 03/09/19 08:57 03/09/19 08:57 03/09/19 08:57
--- NOTE | 2019-03-09 10:16 | P.PCN ---
Date of Procedure: 03/09/19 Description of Procedure: PREOPERATIVE DIAGNOSIS: Colonoscopy screening, first Family history of colon cancer, father POSTOPERATIVE DIAGNOSIS: Colonoscopy screening, first Family history of colon cancer, father Multiple tubular adenomas throughout the colon. Colon diverticulosis, scattered External hemorrhoids, grade 3. OPERATION: Colonoscopy to the ileocecal valve and appendiceal orifice. Colonoscopy with multiple cold forceps biopsies. SURGEON: Olamide Simms MD. ANESTHESIA: MAC. INDICATIONS: The patient is a 73-year-old female who presents for colonoscopy screening. This is her first. Benefits and risks were described and informed consent was obtained. DESCRIPTION OF PROCEDURE: The patient had undergone Gatorade, Suprep. She had been brought into the operating room and laid in the left lateral decubitus position. After adequate intravenous sedation, the rectum was examined with 2% lidocaine jelly. External hemorrhoids were encountered. The rectal tone was within normal limits. No lesions were palpated in the rectal vault. An Olympus colonoscope was advanced until the ileocecal valve and appendiceal orifice were clearly viewed. The prep was excellent. Scattered diverticulosis was encountered. Colonic polyps were found and cold forcep biopsy. No evidence of focal colitis was found. Retroflexion of the scope demonstrated grade 1 internal hemorrhoids without active bleeding or inflammation. The colon was desufflated. The patient had tolerated the procedure well. Withdrawal time was over 6 minutes. FINDINGS: Aronchick preparation quality scale 1 (1-5) Internal hemorrhoids, grade 1 External hemorrhoids, grade 3 No arteriovenous malformations, a few Scattered diverticulosis Removal of 2 polyps: - Cold forceps biopsy at distal transverse colon, 5 mm polyp. - Cold forceps biopsy at descending colon, 4 mm polyp. No focal colitis. RECOMMENDATIONS: Repeat colonoscopy in 3 years, 2021 Plan - Discharge Summary Discharge Rx Participant: No New Discharge Prescriptions: No Action Dabigatran [Pradaxa] 150 mg PO DAILY Atorvastatin [Lipitor] 20 mg PO HS amLODIPine [Norvasc] 2.5 mg PO DAILY Spironolactone [Aldactone] 25 mg PO DAILY #30 tab Multivitamins, Thera [Multivitamin (formulary)] 1 tab PO DAILY Metoprolol Tartrate 25 mg PO BID Discharge Medication List Atorvastatin [Lipitor] 20 mg PO HS 01/06/14 [History] Dabigatran [Pradaxa] 150 mg PO DAILY 01/06/14 [History] amLODIPine [Norvasc] 2.5 mg PO DAILY 08/28/16 [History] Spironolactone [Aldactone] 25 mg PO DAILY #30 tab 12/23/16 [Rx] Multivitamins, Thera [Multivitamin (formulary)] 1 tab PO DAILY 02/05/17 [History] Metoprolol Tartrate 25 mg PO BID 02/10/17 [History] Follow up Appointment(s)/Referral(s): Olamide Simms MD [STAFF PHYSICIAN] - As Needed Patient Instructions/Handouts: Colorectal Polyps (IP), Diverticulosis Diet (GEN), Diverticulosis (GEN) Activity/Diet/Wound Care/Special Instructions: Start blood thinner Mar 12. Repeat colonoscopy 3 years, 2021 Discharge Disposition: HOME SELF-CARE
[2019-03-09 10:33] VITALS: BP 137/84; PULSE 47; RESP 16
== END 2019-03-09 10:49 | disposition home or self-care (01) ==
LOC: ORWHC2ENDO 08:31
PROVIDERS: ATTEND Surgery Plastic and Reconstructive Surgery
DX: Z12.11 Encounter for screening for malignant neoplasm of colon (principal); D12.2 Benign neoplasm of ascending colon; D12.3 Benign neoplasm of transverse colon; K57.30 Diverticulosis of large intestine without perforation or abscess without bleeding; K64.0 First degree hemorrhoids; K64.4 Residual hemorrhoidal skin tags; I48.91 Unspecified atrial fibrillation; I10 Essential (primary) hypertension; E78.5 Hyperlipidemia, unspecified; Z98.51 Tubal ligation status; Z86.69 Personal history of other diseases of the nervous system and sense organs; Z90.89 Acquired absence of other organs; Z79.02 Long term (current) use of antithrombotics/antiplatelets; Z79.899 Other long term (current) drug therapy; Z98.890 Other specified postprocedural states; Z80.0 Family history of malignant neoplasm of digestive organs; Z80.42 Family history of malignant neoplasm of prostate
CPT/HCPCS: 88305; 45380; J2001; J2704

== ENCOUNTER → 2019-03-13 | Outpatient (CLI) | payer MEDICARE ==
[2019-03-13 07:32] LABS: Basophils # (A) 0.1 k/uL (0-0.2); Basophils % (A) 1 %; Eosinophils # (A) 0.3 k/uL (0-0.7); Eosinophils % (A) 3 %; HCT 41.4 % (34.0-46.0); HGB 13.7 gm/dL (11.4-16.0); Lymphocytes # (A) 1.8 k/uL (1.0-4.8); Lymphocytes % (A) 23 %; MCH 31.1 pg (25.0-35.0); MCHC 33.2 g/dL (31.0-37.0); MCV 93.5 fL (80.0-100.0); Mean Platelet Volume 6.9; Monocytes # (A) 0.6 k/uL (0-1.0); Monocytes % (A) 8 %; Neutrophils # (A) 4.7 k/uL (1.3-7.7); Neutrophils % (A) 61 %; Platelet Count 350 k/uL (150-450); RBC 4.42 m/uL (3.80-5.40); RDW 13.1 % (11.5-15.5); WBC 7.6 k/uL (3.8-10.6)
[2019-03-13 12:00] LABS: Albumin 4.3 g/dL (3.80-4.90); Albumin/Globulin Ratio 2.69 (1.60-3.17); Calcium 9.5 mg/dL (8.7-10.3); Chol/HDL Ratio 2.73; Globulin 1.6 g/dL (1.6-3.3); LDL Cholesterol,Calculated 79.2 mg/dL (0.0-131.0); Potassium 4.7 mmol/L (3.5-5.5); Total Bilirubin 0.7 mg/dL (0.3-1.2); Total Protein 5.9 g/dL (6.2-8.2); VLDL Calculation 15.8 mg/dL (5.00-40.00)
== END | disposition home or self-care (01) ==
LOC: LABWHC1 06:57
PROVIDERS: ATTEND Family Medicine
DX: I10 Essential (primary) hypertension (principal); E04.8 Other specified nontoxic goiter; E78.2 Mixed hyperlipidemia
CPT/HCPCS: 36415; 80053; 80061; 84439; 84443; 85025

== ENCOUNTER → 2019-09-13 | Outpatient (CLI) | payer MEDICARE ==
[2019-09-13 17:39] LABS: African American GFR (CKD) 85.4 (60.0-200.0); Albumin 4.3 g/dL (3.80-4.90); Albumin/Globulin Ratio 2.53 (1.60-3.17); Anion Gap 8.3 mmol/L (4.00-12.00); BUN/Creat Ratio 18.75 Ratio (12.00-20.00); Calcium 9.2 mg/dL (8.7-10.3); Carbon Dioxide 29.7 mmol/L (21.6-31.8); Chol/HDL Ratio 2.75; Globulin 1.7 g/dL (1.6-3.3); LDL Cholesterol,Calculated 82.6 mg/dL (0.0-131.0); Non-African American GFR(CKD) 73.7 (60.0-200.0); Potassium 4.3 mmol/L (3.5-5.5); Total Bilirubin 0.6 mg/dL (0.3-1.2); VLDL Calculation 13.4 mg/dL (5.00-40.00)
== END | disposition home or self-care (01) ==
LOC: LABWHC1 09:06
PROVIDERS: ATTEND Internal Medicine Interventional Cardiology
DX: E78.2 Mixed hyperlipidemia (principal)
CPT/HCPCS: 36415; 80053; 80061

== ENCOUNTER → 2020-04-01 | Outpatient (CLI) | payer MEDICARE ==
[2020-04-01 15:02] LABS: African American GFR (CKD) 100.3 (60.0-200.0); Albumin 4.1 g/dL (3.80-4.90); Albumin/Globulin Ratio 2.73 (1.60-3.17); Anion Gap 5.6 mmol/L (4.00-12.00); BUN/Creat Ratio 21.43 Ratio (12.00-20.00); Calcium 9.2 mg/dL (8.7-10.3); Carbon Dioxide 31.4 mmol/L (21.6-31.8); Chol/HDL Ratio 2.91; Globulin 1.5 g/dL (1.6-3.3); Non-African American GFR(CKD) 86.6 (60.0-200.0); Potassium 4.6 mmol/L (3.5-5.5); Total Bilirubin 0.6 mg/dL (0.2-1.2); Total Protein 5.6 g/dL (6.2-8.2)
== END | disposition home or self-care (01) ==
LOC: LABWHC1 08:31
PROVIDERS: ATTEND Internal Medicine Interventional Cardiology
DX: E78.2 Mixed hyperlipidemia (principal)
CPT/HCPCS: 36415; 80053; 80061

== ENCOUNTER → 2020-05-20 | Outpatient (CLI) | payer MEDICARE ==
[2020-05-21 03:40] LABS: Albumin 4.3 g/dL (3.80-4.90); Albumin/Globulin Ratio 2.39 (1.60-3.17); Anion Gap 9.2 mmol/L (4.00-12.00); BUN/Creat Ratio 25.56 Ratio (12.00-20.00); Calcium 9.4 mg/dL (8.7-10.3); Carbon Dioxide 27.8 mmol/L (21.6-31.8); Globulin 1.8 g/dL (1.6-3.3); Non-African American GFR(CKD) 63.9 (60.0-200.0); Potassium 4.7 mmol/L (3.5-5.5); Total Bilirubin 0.6 mg/dL (0.2-1.2); Total Protein 6.1 g/dL (6.2-8.2)
== END | disposition home or self-care (01) ==
LOC: LABMAIN 17:25
PROVIDERS: ATTEND Internal Medicine Interventional Cardiology
DX: D48.0 Neoplasm of uncertain behavior of bone and articular cartilage (principal)
CPT/HCPCS: 36415; 80053; 84443

== ENCOUNTER 2020-05-24 07:26 | Day surgery (SDC) | payer MEDICARE ==
[2020-05-23 10:51] VITALS: BMI 26.6
[~2020-05-24 07:26] MED LIST changes: -LACTATED RINGERS 1,000 ML IV SCH; -LIDOCAINE 1% 20 ML VIAL (10MG/ML) FOR IV START INTRADERMA PRN; +SODIUM CHLORIDE 0.9% 1,000 ML IV SCH
[2020-05-24 07:54] VITALS: TEMP 98.1
[2020-05-24] MEDS ORDERED: BENZOCAINE SPRAY 1 CAN MUCOUS MEM ONE ×2 (08:20→08:30)
[2020-05-24] MEDS ORDERED: PROPOFOL 10 MG/ML 20 ML VIAL IV ONE (08:25)
[2020-05-24] MEDS ORDERED: SODIUM CHLORIDE 0.9% 1,000 ML IV ONE (08:58)
[2020-05-24 09:10] VITALS: RESP 16
[2020-05-24] MEDS ORDERED: SODIUM CHLORIDE 0.9% 1,000 ML IV SCH (09:15)
--- NOTE | 2020-05-24 09:19 | ECHOT ---
TRANSESOPHAGEAL ECHOCARDIOGRAM INDICATION: Evaluation left atrial appendage. PROCEDURE: After explaining the procedure to the patient, its risks and complication, blood pressure, heart rate, O2 saturation was monitored. The throat was sprayed with Cetacaine. She received sedation per Anesthesia Department. The probe was introduced into the esophagus. Images were obtained, following that the probe was removed. There was no immediate complication. FINDINGS: Left atrial size is dilated. Left ventricular size is normal. There is evidence of severe global hypokinesis, estimated ejection fraction is 30% with global hypokinesis. The aortic valve revealed mild fibrocalcific changes of the aortic cusp with preserved opening, mitral valve revealed mild thickening of mitral valve leaflets. No pericardial effusion was noted. Contrast bubble study revealed no shunting across the interatrial septum. Doppler pulse wave and color Doppler obtained revealed moderate to severe mitral with mild to moderate tricuspid regurgitation. There was no shunting by color Doppler study. CONCLUSION: 1. Dilated left atrium with normal appearance left atrial appendage. 2. Normal left ventricular size with severe global hypokinesis. 3. Moderate to severe mitral with mild to moderate tricuspid regurgitation. 4. No shunting across the interatrial septum. 5. Normal appearance of the descending thoracic aorta. MMODL / IJN: [id number] /
--- NOTE | 2020-05-24 09:55 | CE ---
CARDIAC ELECTROPHYSIOLOGY REPORT CARDIOVERSION PROCEDURE NOTE: INDICATION: Atrial flutter, PROCEDURE: After stating the patient with risks and complications, blood pressure, heart rate, O2 saturation was monitored. After obtaining transesophageal echocardiogram, a synchronized biphasic cardioversion using 200 joules was performed with bahai of sinus mechanism. Initial rhythm was sinus bradycardia. There was no immediate complication. MMLUH / NEEMAN: [id number] /
[2020-05-24 10:30] VITALS: PULSE 48
[2020-05-24 10:31] VITALS: BP 103/64
[2020-05-24] MEDS ORDERED: ATORVASTATIN 20 MG TAB PO SCH (21:00)
[2020-05-24] MEDS ORDERED: DABIGATRAN 150 MG CAP PO SCH (21:00)
[2020-05-24] MEDS ORDERED: METOPROLOL TARTRATE 25 MG TAB PO SCH (21:00)
[2020-05-25] MEDS ORDERED: MULTIVITAMINS, THERA 1 EACH TAB PO SCH (09:00)
[2020-05-25] MEDS ORDERED: SPIRONOLACTONE 25 MG TAB PO SCH (09:00)
[2020-05-25] MEDS ORDERED: NON FORMULARY DRUG (Biotin [Biotin] 5,000 MCG Tab.Rapdis) PO SCH (09:00)
[2020-05-25] MEDS ORDERED: AMIODARONE 200 MG TAB PO SCH (09:00)
[2020-05-25] MEDS ORDERED: TIMOLOL 0.5% OPHTH DROPS 5 ML BTL BOTH EYES SCH (09:00)
== END 2020-05-24 10:48 | disposition home or self-care (01) ==
LOC: CATHCVL 07:26
PROVIDERS: ATTEND Internal Medicine Interventional Cardiology
DX: I08.1 Rheumatic disorders of both mitral and tricuspid valves (principal); I42.8 Other cardiomyopathies; I48.92 Unspecified atrial flutter; I48.0 Paroxysmal atrial fibrillation; I49.3 Ventricular premature depolarization; I10 Essential (primary) hypertension; E78.2 Mixed hyperlipidemia; Z79.899 Other long term (current) drug therapy; Z79.02 Long term (current) use of antithrombotics/antiplatelets; Z88.8 Allergy status to other drugs, medicaments and biological substances
CPT/HCPCS: 93312; 93320; 93325; 92960; J2704

== ENCOUNTER → 2020-08-05 | Outpatient (CLI) | payer MEDICARE ==
[2020-08-05 11:18] LABS: African American GFR (CKD) 84.8 (60.0-200.0); Albumin 4.5 g/dL (3.80-4.90); Albumin/Globulin Ratio 2.81 (1.60-3.17); Anion Gap 6.4 mmol/L (4.00-12.00); BUN/Creat Ratio 21.25 Ratio (12.00-20.00); Calcium 9.5 mg/dL (8.7-10.3); Carbon Dioxide 31.6 mmol/L (21.6-31.8); Chol/HDL Ratio 2.89; Globulin 1.6 g/dL (1.6-3.3); LDL Cholesterol,Calculated 88.6 mg/dL (0.0-131.0); Non-African American GFR(CKD) 73.1 (60.0-200.0); Potassium 4.7 mmol/L (3.5-5.5); Total Bilirubin 0.8 mg/dL (0.3-1.2); Total Protein 6.1 g/dL (6.2-8.2); VLDL Calculation 17.4 mg/dL (5.00-40.00)
== END | disposition home or self-care (01) ==
LOC: LABWHC1 07:42
PROVIDERS: ATTEND Internal Medicine Interventional Cardiology
DX: E78.2 Mixed hyperlipidemia (principal); I48.0 Paroxysmal atrial fibrillation
CPT/HCPCS: 36415; 80053; 80061; 84443

== ENCOUNTER → 2020-09-18 | Outpatient (CLI) | payer MEDICARE ==
[2020-09-18 10:23] LABS: HGB 13.2 gm/dL (11.4-16.0); MCH 32.6 pg (25.0-35.0); MCHC 33.9 g/dL (31.0-37.0); MCV 96.3 fL (80.0-100.0); Mean Platelet Volume 7.2; Platelet Count 275 k/uL (150-450); RBC 4.06 m/uL (3.80-5.40); RDW 12.7 % (11.5-15.5); WBC 6.4 k/uL (3.8-10.6)
[2020-09-18 10:45] LABS: Potassium 5.2 mmol/L (3.5-5.1)
== END | disposition home or self-care (01) ==
LOC: LABWHC1 08:43
PROVIDERS: ATTEND Internal Medicine Clinical Cardiac Electrophysiology
DX: Z01.812 Encounter for preprocedural laboratory examination (principal); I48.11 Longstanding persistent atrial fibrillation
CPT/HCPCS: 36415; 80051; 82565; 84520; 85027

== ENCOUNTER 2020-09-24 11:25 | Day surgery (SDC) | payer MEDICARE ==
[2020-09-20 12:09] VITALS: BMI 26.6
[2020-09-24] MEDS: SODIUM CHLORIDE 0.9% 1,000 ML IV SCH (12:05)
[2020-09-24] MEDS ORDERED: LIDOCAINE 1% INJ 10MG/ML (20 ML MDV) SQ ONE (13:22)
[2020-09-24] MEDS ORDERED: HEPARIN SOD,PORK IN 0.45% NACL 25,000 UNIT in 0.45% NACL 1 250ML.BAG IV ONE (15:30)
[2020-09-24] MEDS ORDERED: AMIODARONE 50 MG/ML 3 ML VIAL IV ONE (15:30)
[2020-09-24] MEDS ORDERED: LACTATED RINGERS 1,000 ML IV ONE (16:30)
[2020-09-24] MEDS ORDERED: HEPARIN SODIUM (1,000 UNIT/ML) 1,000 UNIT in SODIUM CHLORIDE 0.9% 1,000 ML IRRIGATION ONE (17:23)
[2020-09-24] MEDS ORDERED: DEXTROSE 5% IN WATER 100 ML BAG IV ONE (17:30)
[2020-09-24] MEDS ORDERED: PROTAMINE SULFATE 10 MG/ML 5 ML VIAL IV ONE ×2 (17:30→17:38)
[2020-09-24] MEDS ORDERED: ACETAMINOPHEN TAB 325 MG TAB PO PRN (17:43)
[2020-09-24] MEDS ORDERED: ACETAMINOPHEN IV (For NPO) 1,000 MG in EMPTY BAG 1 BAG IVPB ONE (18:00)
--- NOTE | 2020-09-24 18:01 | P.EPPROC ---
- EP Procedure Note Electrophysiology Procedure Note: Diagnosis Persistent atrial fibrillation that appears to be an atrial tachycardia Symptomatic Refractory to amiodarone Procedures performed RF ablation in the fossa ovalis RF ablation at the roof of the CS and above the CS between the lower part of the fossa ovalis in the coronary sinus RF ablation in the SVC septum RF ablation in the anterior inferior LA wall Patient underwent cardioversions through the procedure atrial arrhythmias followed by mapping This was a long procedure requiring a Pentaray catheter mapping and ablation catheter, multiple maps of the right atrium and of the left atrium Plan Antiarrhythmic drug therapy for suppression of slow cycle length atrial fibrillation Procedure details Patient was brought to the EP lab in a fasting state. Written informed consent was obtained prior to the procedure. The procedure was performed under conscious sedation. She was in sinus rhythm with a systolic study Venous sheaths were placed in the right and left femoral veins Diagnostic cath was placed in the high right atrium coronary sinus and His bundle area Baseline measurements were as follows Sinus cycle length 1412 ms, DC interval 174 ms, QRS 123 ms and QT interval 500 ms HV 58 ms Sinus recovery times at a pacing cycle length of 605 100 ms were 1824 and 1824 ms respectively. From the high right atrium it was 1651 ms. AV node Wenckebach block 420 ms An atrial tachycardia with earliest activation in the septum close in the His bundle electrodes, with burst ablation from the high right atrium However the tachycardia with change morphologies. Multiple different morphologies were noted these appear to be atrial tachycardia on surface ECG This tachycardia then degenerated into atrial fibrillation upon starting Isuprel, low-dose 3-D electro-anatomic mapping was performed The right atrium was mapped Scar mapped was performed In the previous ablation organization of atrial fibrillation was noted once RF ablation was performed in the septum A focal tachycardia was noted just outside and above the coronary sinus in the previous ablation His time with ultrasound we defined the fossa ovalis septum and also the coronary sinus RF ablation along the limbus of the fossa ovalis posteriorly and inferiorly and in the region between the coronary sinus and the lower aspect of the fossa ovalis Electrical cardioversion was then performed and EP study was performed to induce the atrial tachycardia Atrial tachycardia was induced to anatomic mapping was performed however this was an irregular atrial tachycardia and there was fluctuation in both the cycle length as well as the electrograms although the surface ECG looked like an atrial tachycardia An activation map was performed to get a sense of the approximate region involved and this was found to be in the septal aspect in the upper septum the base of the SVC close to the SVC RA junction. In fact at one point there was no mechanical termination of the tachycardia. RF ablation was applied in this region successfully However we were able to induce yet another tachycardia that was mapped to the lower part of the septum and RF ablation was performed in the right interatrial septum once again The tachycardia were changed into a different tachycardia Transseptal catheterization was performed LA pressure 25/2/26. His mercury Voltage map was performed of the left atrium The pulmonary veins were quiescent The left atrial roof was quiescent The tachycardia was mapped to the anterior inferior LA wall and RF ablation was applied here. However when the RV map was placed alongside this was the region of the His bundle on the right atrial side and therefore no further ablations were performed The DC interval between stable The patient continued to have multiple slow atrial arrhythmias that on the surface ECG appeared to be atrial tachycardia's but in essence, intracardiac electrograms showed subtle variability in cycle length as well as electrogram morphology This patient has slow atrial fibrillation, multiple different sources At the end of the procedure all sheaths were removed. Intracardiac echo showed absence of any pericardial effusion She tolerated the procedure well without any acute complications
[2020-09-24] MEDS: LACTATED RINGERS 1,000 ML IV SCH (19:54)
[2020-09-24] MEDS: HYDROcodone/APAP 5-325MG 1 EACH TAB PO PRN (19:55)
[2020-09-24] MEDS ORDERED: ATORVASTATIN 20 MG TAB PO SCH (21:00)
[2020-09-24] MEDS ORDERED: RIVAROXABAN 20 MG TAB PO SCH (21:00)
[2020-09-24] MEDS: METOPROLOL TARTRATE 12.5 MG TAB PO SCH ×3 (21:36→22:29)
[2020-09-25] MEDS: HYDROcodone/APAP 5-325MG 1 EACH TAB PO PRN (02:47)
[2020-09-25] MEDS: SODIUM CHLORIDE 0.9% 1,000 ML IV SCH (04:53)
[2020-09-25 07:22] VITALS: BP 112/70; PULSE 55; RESP 16; TEMP 97.7
[2020-09-25] MEDS: LACTATED RINGERS 1,000 ML IV SCH (08:44)
[2020-09-25] MEDS: METOPROLOL TARTRATE 12.5 MG TAB PO SCH (08:45)
[2020-09-25] MEDS ORDERED: AMIODARONE 100 MG TAB PO SCH (09:00)
[2020-09-25] MEDS ORDERED: SPIRONOLACTONE 25 MG TAB PO SCH (09:00)
[2020-09-25] MEDS ORDERED: TIMOLOL 0.5% OPHTH DROPS 5 ML BTL BOTH EYES SCH (09:00)
--- NOTE | 2020-09-25 12:14 | P.DS ---
Providers Attending physician: Efren Hassan Primary care physician: [facility] Course: Patient is resting comfortably in bed. She denies any chest discomfort no shortness of breath no dizziness or lightheadedness. She complained of palpitations the night and she was in A. fib with a ventricular rate of about 120 beats a minute. Since then she is back in sinus rhythm with a heart rate at 40 beats a minute narrow QRS normal NC interval On examination pulse rate is in the 50s, afebrile 97.70 Fahrenheit, blood pressure 112/70 mmHg Breath sounds are clear no rhonchi no crackles Normal heart sounds normal S1 normal S2 no murmurs no gallops no rub Abdomen is soft No hematoma in the groins bilaterally Impression history of persistent atrial fibrillation Status post A. fib ablation 2 years back with a PVI, linear ablation in the roof of the left atrium and linear ablation on the left side of the septum and ablation of the fossa ovalis area on the right atrium. At that time for atrial fibrillation really organized with right-sided septal ablation in the fossa ovalis and it appeared that she had an atrial tachycardia just outside of above the coronary sinus but the RF ablation the atrial tachycardia would repeatedly degenerate into atrial fibrillation Patient maintains sinus rhythm for about 2 years but had recurrence and is now on amiodarone On amiodarone she's had recurrences of atrial fibrillation I reduced the dose of amiodarone to 100 mg by mouth daily and Gottron from A. fib ablation The left atrial lesion set was intact. The pulmonary veins have remained isolated. The linear ablation in the roof is intact Irregular atrial tachycardia/atrial fibrillation was induced with EP study The right atrial septum was mapped with intracardiac echo and 3-D electro- anatomic mapping/voltage mapping RF ablation in the limbus of the fossa ovalis superiorly posteriorly and inferiorly, RF ablation between the os of the coronary sinus and lower portion of the limbus/fossa ovalis is performed RF ablation was performed just outside the roof of the coronary sinus She did have residual atrial fibrillation at EP study following RF ablation Plan Continue amiodarone 100 mg by mouth daily for about 2-3 months and then consider stopping especially if after 3 months she continues to have episodes of A. fib Continue beta blockers I would not recommend any further ablations at this point If after 3 months she continues to have episodes of atrial fibrillation then permanent pacemaker with high dose beta blockers is a consideration The QT interval is about 500 ms on low-dose amiodarone for the heart rate at 40 beats a minute Continue anticoagulation lifelong Patient Condition at Discharge: Stable Plan - Discharge Summary Discharge Rx Participant: No New Discharge Prescriptions: Continue Atorvastatin [Lipitor] 20 mg PO HS Spironolactone [Aldactone] 25 mg PO DAILY #30 tab Multivitamins, Thera [Multivitamin (formulary)] 1 tab PO DAILY Timolol 0.5% Ophth Soln [Timoptic 0.5% Ophth Soln] 1 drop BOTH EYES DAILY Amiodarone HCl [Pacerone] 100 mg PO DAILY Metoprolol Tartrate 12.5 mg PO BID Rivaroxaban [Xarelto] 20 mg PO HS Discharge Medication List Atorvastatin [Lipitor] 20 mg PO HS 01/06/14 [History] Spironolactone [Aldactone] 25 mg PO DAILY #30 tab 12/23/16 [Rx] Multivitamins, Thera [Multivitamin (formulary)] 1 tab PO DAILY 02/05/17 [History] Timolol 0.5% Ophth Soln [Timoptic 0.5% Ophth Soln] 1 drop BOTH EYES DAILY 05/23/20 [History] Amiodarone HCl [Pacerone] 100 mg PO DAILY 09/20/20 [History] Metoprolol Tartrate 12.5 mg PO BID 09/20/20 [History] Rivaroxaban [Xarelto] 20 mg PO HS 09/20/20 [History] Follow up Appointment(s)/Referral(s): Lee Ann Person MD [STAFF PHYSICIAN] - 1 Week Activity/Diet/Wound Care/Special Instructions: Post EP study - Ablation instructions 1. Keep access sites dry for 2 days. 2. No heavy lifting or straining for 2 days. 3. Avoid bending the hips repeatedly for 2 days. 4. You may go up and down stairs slowly Call if the following is noted 1. Bleeding, increasing swelling or pain at the access sites. 2. Increasing chest discomfort, especially upon taking a deep breath. 3. Increasing shortness of breath, at rest or with exertion. 4. Undue cough / phlegm 5. Difficulty or pain while swallowing. 6. Pain or change in color in the extremities. 7. Fever, chills, rigors. 8. Increasing headache or neurologic symptoms. 9. Dizziness, fainting, palpitations
== END 2020-09-25 14:41 | disposition home or self-care (01) ==
LOC: CATHEP 11:25 → 6NMEDSUR 17:36 → CATHEP 09-25 14:41
PROVIDERS: ATTEND Internal Medicine Clinical Cardiac Electrophysiology
DX: I47.1 Supraventricular tachycardia (principal); I48.19 Other persistent atrial fibrillation; I08.3 Combined rheumatic disorders of mitral, aortic and tricuspid valves; I49.3 Ventricular premature depolarization; I42.8 Other cardiomyopathies; E78.5 Hyperlipidemia, unspecified; I10 Essential (primary) hypertension; Z98.51 Tubal ligation status; Z98.890 Other specified postprocedural states; Z79.01 Long term (current) use of anticoagulants; Z79.899 Other long term (current) drug therapy; Z88.8 Allergy status to other drugs, medicaments and biological substances
CPT/HCPCS: 85347; 92960; 93623; 93662; 93613; 93653; C1894; C1769 ×4; C1766; C1730 ×2; C1731; C1759; C1732; J2720; J0282; J2001; J1644 ×2

== ENCOUNTER → 2020-11-22 | Outpatient (CLI) | payer MEDICARE ==
[2020-11-22 15:40] LABS: African American GFR (CKD) 73.5 (60.0-200.0); Albumin 4.2 g/dL (3.80-4.90); Albumin/Globulin Ratio 2.21 (1.60-3.17); Anion Gap 6.3 mmol/L (4.00-12.00); Calcium 9.4 mg/dL (8.7-10.3); Carbon Dioxide 29.7 mmol/L (21.6-31.8); Globulin 1.9 g/dL (1.6-3.3); Non-African American GFR(CKD) 63.4 (60.0-200.0); Potassium 5.1 mmol/L (3.5-5.5); Total Bilirubin 0.9 mg/dL (0.2-1.2); Total Protein 6.1 g/dL (6.2-8.2)
== END | disposition home or self-care (01) ==
LOC: LABWHC1 09:34
PROVIDERS: ATTEND Nurse Practitioner Adult Health
DX: I48.0 Paroxysmal atrial fibrillation (principal); I47.1 Supraventricular tachycardia
CPT/HCPCS: 36415; 80053; 84439; 84443

== ENCOUNTER → 2021-03-12 | Outpatient (CLI) | payer MEDICARE ==
[2021-03-12 23:14] LABS: Chol/HDL Ratio 3.12
== END | disposition home or self-care (01) ==
LOC: LABWHC1 08:26
PROVIDERS: ATTEND Nurse Practitioner Adult Health
DX: E78.2 Mixed hyperlipidemia (principal)
CPT/HCPCS: 36415; 80061; 84439; 84443; 84450; 84460

== ENCOUNTER → 2022-03-10 | Outpatient (CLI) | payer MEDICARE ==
[2022-03-10 11:20] LABS: ALT 16 U/L (8-44); AST 23 U/L (13-35); Chol/HDL Ratio 2.78 Ratio; LDL Cholesterol,Calculated 84.2 mg/dL (0.0-131.0)
== END | disposition home or self-care (01) ==
LOC: LABWHC1 07:40
PROVIDERS: ATTEND Internal Medicine Interventional Cardiology
DX: E03.2 Hypothyroidism due to medicaments and other exogenous substances (principal); E78.2 Mixed hyperlipidemia
CPT/HCPCS: 36415; 80061; 84443; 84450; 84460

== ENCOUNTER 2022-11-10 10:58 | Emergency (ER) | payer MEDICARE ==
[2022-11-10 11:17] VITALS: BP 111/35; PULSE 92; RESP 20; TEMP 97.7
[2022-11-10] MEDS ORDERED: MORPHINE SULFATE 2 MG/ML SYRINGE IM STA (12:46)
--- NOTE | 2022-11-10 14:20 | US ---
EXAMINATION TYPE: US venous doppler duplex LE LT DATE OF EXAM: 11/10/2022 1:35 PM COMPARISON: NONE CLINICAL INDICATION: Female, 77 years old with history of pain and swelling; Patient on Xeralto. SIDE PERFORMED: Left TECHNIQUE: The lower extremity deep venous system is examined utilizing real time linear array sonog yasmin with graded compression, doppler sonography and color-flow sonography. VESSELS IMAGED: Common Femoral Vein Deep Femoral Vein Greater Saphenous Vein * Femoral Vein Popliteal Vein Small Saphenous Vein * Proximal Calf Veins (* superficial vessels) Left Leg: Negative for DVT Incidental note is made of complex collection left pop fossa measuring 7.4 x 1.9 x 2.7 cm. This is h ypoechoic and mildly lobulated. No vascular flow is identified. IMPRESSION: 1. Left lower extremity ultrasound negative for deep venous thrombosis. 2. Left Popliteal masslike area. Underlying mass should be considered. MRI is recommended for additi onal evaluation.
--- NOTE | 2022-11-10 14:24 | XR ---
EXAMINATION TYPE: XR knee 4V LT DATE OF EXAM: 11/10/2022 COMPARISON: None HISTORY: Pain TECHNIQUE: Left knee is examined in 4 projections. FINDINGS: There is mild narrowing of the medial compartment joint space. There may be a small joint e ffusion. Patellofemoral joint space narrowing is present. No acute fracture is evident. Follow up exams can be performed 7-10 days of acute trauma for continue d pain. IMPRESSION: 1. 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 2. No acute fracture evident. 3. [id number] joint effusion.
[2022-11-10] MEDS ORDERED: traMADol 50 MG STARTER PACK 3 TAB BTL PO STA (15:01)
--- NOTE | 2022-11-10 15:04 | ED ---
Lower Extremity Injury HPI - General Chief Complaint: Extremity Injury, Lower Stated Complaint: Lt knee pain Time Seen by Provider: 11/10/22 12:40 Source: patient, family (Daughter), RN notes reviewed Mode of arrival: ambulatory Limitations: no limitations - History of Present Illness Initial Comments: Patient is a 77-year-old female presenting to the emergency room with complaints of worsening left knee pain. She reports that she has had chronic knee pain that has been bothersome for several years and has previously been advised that she will likely need a knee replacement but states over the last week she has had an increase in her chronic knee pain which became more severe yesterday evening with difficulty ambulating and pain with range of motion. She denies any injury, trauma or wounds. She has taken Tylenol for pain as she is on anticoagulation for atrial fibrillation and has been advised that she should not take NSAIDs; she reports no improvement in symptoms from Tylenol. She reports that range of motion limitations are secondary to pain. She has been utilizing a cane for ambulation over the last week. In addition to her history is she has a past medical history significant for hypertension, hyperlipidemia, glaucoma and osteoarthritis. - Related Data Home Medications Medication Instructions Recorded Confirmed Atorvastatin [Lipitor] 20 mg PO HS 01/06/14 09/24/20 Multivitamins, Thera [Multivitamin 1 tab PO DAILY 02/05/17 09/20/20 (formulary)] Timolol 0.5% Ophth Soln [Timoptic 1 drop BOTH EYES DAILY 05/23/20 09/24/20 0.5% Ophth Soln] Amiodarone HCl [Pacerone] 100 mg PO DAILY 09/20/20 09/24/20 Metoprolol Tartrate 12.5 mg PO BID 09/20/20 09/24/20 Rivaroxaban [Xarelto] 20 mg PO HS 09/20/20 09/24/20 Previous Rx's Medication Instructions Recorded Spironolactone [Aldactone] 25 mg PO DAILY #30 tab 12/23/16 traMADol HCL 50 mg PO Q6H PRN 3 Days #12 tab 11/10/22 Allergies Allergy/AdvReac Type Severity Reaction Status Date / Time No Known Allergies Allergy Verified 11/10/22 11:17 Review of Systems ROS Statement: Those systems with pertinent positive or pertinent negative responses have been documented in the HPI. ROS Other: All systems not noted in ROS Statement are negative. Past Medical History Past Medical History: Atrial Fibrillation, Hyperlipidemia, Hypertension, Osteoarthritis (OA) Additional Past Medical History / Comment(s): glaucoma (had surgery). History of Any Multi-Drug Resistant Organisms: None Reported Past Surgical History: Cardiac Ablation, Heart Catheterization, Tonsillectomy, Tubal Ligation Additional Past Surgical History / Comment(s): EYE SURGERY-GLAUCOMA. CARDIOVERSION X 3 Past Anesthesia/Blood Transfusion Reactions: No Reported Reaction Additional Past Anesthesia/Blood Transfusion Reaction / Comment(s): no hx blood transfusion Past Psychological History: No Psychological Hx Reported Smoking Status: Never smoker Past Alcohol Use History: None Reported Past Drug Use History: None Reported - Past Family History Father Family Medical History: Cancer Additional Family Medical History / Comment(s): prostate and colon Son(s) Family Medical History: Cancer General Exam Limitations: no limitations General appearance: alert, in no apparent distress Head exam: Present: atraumatic, normocephalic, normal inspection Eye exam: Present: normal appearance, PERRL, EOMI. Absent: scleral icterus, conjunctival injection, periorbital swelling ENT exam: Present: normal exam, mucous membranes moist Neck exam: Present: normal inspection, full ROM Respiratory exam: Absent: respiratory distress, accessory muscle use Cardiovascular Exam: Present: regular rate GI/Abdominal exam: Absent: distended, tenderness Left Knee exam: Present: tenderness, swelling, effusion. Absent: full ROM ( active range of motion limited by pain, full passive of range of motion), abrasion, laceration, ecchymosis, deformity, crepitus, dislocation, erythema Neurovascular tendon exam: Present: no vascular compromise Gait: observed and limited by pain Back exam: Present: normal inspection Neurological exam: Present: alert, oriented X3, CN II-XII intact Psychiatric exam: Present: normal affect, normal mood Skin exam: Present: warm, dry, intact, normal color. Absent: rash Course Vital Signs 11/10/22 11:14 Temperature 97.7 F Pulse Rate 92 Respiratory 20 Rate Blood Pressure 111/35 O2 Sat by Pulse 97 Oximetry Medical Decision Making - Medical Decision Making Was pt. sent in by a medical professional or institution (, PA, HAND PLUG SHAPER, urgent care, hospital, or group home...) When possible be specific @ -No Did you speak to anyone other than the patient for history (EMS, parent, family, police, friend...)? What history was obtained from this source @ -Yes, daughter at bedside confirming history of current illness provided by patient. Did you review nursing and triage notes (agree or disagree)? Why? @ -I reviewed and agree with nursing and triage notes Were old charts reviewed (outside hosp., previous admission, EMS record, old EKG, old radiological studies, urgent care reports/EKG's, group home records)? Report findings @ -No old charts were reviewed Differential Diagnosis (chest pain, altered mental status, abdominal pain women, abdominal pain men, vaginal bleeding, weakness, fever, dyspnea, syncope, headache, dizziness, GI bleed, back pain, seizure, CVA, palpatations, mental health, musculoskeletal)? @ -Differential Musculoskeletal Muscular strain, contusion, ligament sprain, fracture, arthritis, septic arthritis, bursitis, cellulitis, muscle spasm, nerve compression, DVT, arterial occlusion, herpes zoster, electrolyte abnormality, tumor.... This is not meant to be in all inclusive list EKG interpreted by me (3pts min.). @ -None done X-rays interpreted by me (1pt min.). @ -X-ray left knee: Degenerative joint changes with moderate joint effusion. CT interpreted by me (1pt min.). @ -None done U/S (1pt. min.). @ -Ultrasound venous Doppler left lower extremity report per radiologist, not interpreted by me, of lower extremity ultrasound negative for DVT left popliteal mass like area mildly lobular and hypoactive without vascular flow 7.4 x 1.9 x 2.7 cm. What testing was considered but not performed or refused? (CT, X-rays, U/S, labs)? Why? @ -None What meds were considered but not given or refused? Why? @ -None Did you discuss the management of the patient with other professionals (james wilson i.e. , PA, HAND PLUG SHAPER, lab, RT, psych nurse, professor of social work, green coffee blender, teacher, chief resource officer, telephonic nurse case manager)? Give summary @ -No Was smoking cessation discussed for >3mins.? @ -No Was critical care preformed (if so, how long)? @ -No Were there social determinants of health that impacted care today? How? (Homelessness, low income, unemployed, alcoholism, drug addiction, transportation, low edu. Level, literacy, decrease access to med. care, custodial, rehab)? @ -No Was there de-escalation of care discussed even if they declined (Discuss DNR or withdrawal of care, Hospice)? DNR status @ -No What co-morbidities impacted this encounter? (DM, HTN, Smoking, COPD, CAD, Cancer, CVA, ARF, Chemo, Hep., AIDS, mental health diagnosis, sleep apnea, morbid obesity)? @ -Osteoarthritis Was patient admitted / discharged? Hospital course, mention meds given and route, prescriptions, significant lab abnormalities, going to OR and other pertinent info. @ -77-year-old female presenting to the emergency room with worsening chronic left knee pain with effusion without any known trauma. On any able to take NSAIDs due to anticoagulation for atrial fibrillation. Will give morphine for pain. No indication for laboratory studies. Despite no trauma given effusion will obtain x-ray of knee along with ultrasound of the left lower extremity. Pain improved with morphine. X-ray shows degenerative changes with moderate effusion no acute osseous pathology. Ultrasound negative for DVT however lobular hypoactive mass noted likely underlying cause pain and effusion. No indication for further diagnostic imaging or laboratory studies at this time. Advised follow-up with primary care provider and orthopedic for further evaluation and treatment of left knee pain and left posterior knee mass. Will give tramadol for pain to utilize until able to follow-up with primary care provider/orthopedist. Advised avoidance of high impact activity and range of motion as tolerated. Advised may utilize Tylenol for breakthrough pain. Questions and concerns answered. Return parameters to the emergency room discussed. Will discharge home in stable condition with tramadol to utilize for left knee pain along with further evaluation and treatment by primary care provider and orthopedist of identified left knee posterior fossa mass. Undiagnosed new problem with uncertain prognosis? @ -No Drug Therapy requiring intensive monitoring for toxicity (Heparin, Nitro, Insulin, Cardizem)? @ -No Were any procedures done? @ -No Diagnosis/symptom? @ -Left knee pain with swelling Acute, or Chronic, or Acute on Chronic? @ -Acute Uncomplicated (without systemic symptoms) or Complicated (systemic symptoms)? @ -Uncomplicated Side effects of treatment? @ -No Exacerbation, Progression, or Severe Exacerbation? @ -No Poses a threat to life or bodily function? How? (Chest pain, [place], [place], pneumonia, PE, COPD, DKA, ARF, appy, cholecystitis, CVA, Diverticulitis, Homicidal, Suicidal, threat to staff... and all critical care pts) @ -No Case discussed with Dr. Hermosillo. - Radiology Data Radiology results: report reviewed, image reviewed Disposition Clinical Impression: Left knee pain, Swelling of knee joint, left Disposition: HOME SELF-CARE Instructions (If sedation given, give patient instructions): Knee Pain (ED) Additional Instructions: Utilize tramadol starter pack as needed for pain, may utilize Tylenol with tramadol if needed. Please follow-up with your primary care provider for further evaluation of possible mass identified on ultrasound. Range of motion as tolerated encouraged. Avoid high impact activities such as jumping. Application of heat or ice in 20 minute increments every 2-3 hours as encouraged.Please return to the Emergency Department if symptoms worsen or any other concerns. Prescriptions: traMADol HCL 50 mg PO Q6H PRN 3 Days #12 tab PRN Reason: Pain Is patient prescribed a controlled substance at d/c from ED?: No Referrals: Unique Hilliard MD [Primary Care Provider] - 1-2 days Time of Disposition: 15:04
== END 2022-11-10 15:20 | disposition home or self-care (01) ==
LOC: EC 10:58
DX: M25.462 Effusion, left knee (principal); I48.91 Unspecified atrial fibrillation; E78.5 Hyperlipidemia, unspecified; I10 Essential (primary) hypertension; M19.90 Unspecified osteoarthritis, unspecified site; Z79.899 Other long term (current) drug therapy
CPT/HCPCS: 73564; 93971; 99284; 96372; J2270

== ENCOUNTER 2023-12-08 08:13 | Emergency (ER) | payer MEDICARE ==
[2023-12-08 08:22] VITALS: TEMP 98
--- NOTE | 2023-12-08 08:40 | ED ---
Abdominal Pain HPI - General Source: patient, family, RN notes reviewed Mode of arrival: ambulatory Limitations: no limitations - History of Present Illness MD Complaint: abdominal pain <Ngzoi Marvin - Last Filed: 12/08/23 08:38> <Geovanny Adler - Last Filed: 12/08/23 10:58> - General Chief Complaint: Abdominal Pain Stated Complaint: abd pain, bruises Time Seen by Provider: 12/08/23 08:38 - History of Present Illness Initial Comments: Quick Note: This is a 78-year-old female who presents to the emergency department for abdominal pain and bruising. Patient states that 3 days ago she had a sharp pain in the center of her abdomen. That has since resolved, however yesterday she started to notice bruising going down the center of her abdomen and across the lower abdomen, almost in a T-like formation. She had minor nausea at one point. She is on Xarelto for A-fib. Denies any history of similar symptoms in the past. Denies any abdominal injuries. (Ngozi Marvin) Dictation was produced using [employer] dictation software. please excuse any grammatical, word or spelling errors. Chief Complaint: 78-year-old female presents emergency department abdominal pain History of Present Illness: Patient 78-year-old female presents emergency d epartment for 3 to 4 days of abdominal pain. Patient states that she has been coughing really hard. She noticed the bruising shortly after on Wednesday along with left lower quadrant abdominal pain. Patient states that it is tender to palpation over her left lower abdomen. Denies any diarrhea. No nausea or vomiting. Patient has a scheduled cardioversion on Wednesday with cardiology. She does take anticoagulation medications. The ROS documented in this emergency department record has been reviewed and confirmed by me. Those systems with pertinent positive or negative responses have been documented in the HPI. All other systems are other negative and/or noncontributory. (Geovanny Adler) - Related Data Home Medications Medication Instructions Recorded Confirmed Atorvastatin [Lipitor] 20 mg PO HS 01/06/14 12/08/23 Multivitamins, Thera [Multivitamin 1 tab PO DAILY 02/05/17 12/08/23 (formulary)] Timolol 0.5% Ophth Soln [Timoptic 1 drop BOTH EYES DAILY 05/23/20 12/08/23 0.5% Ophth Soln] Amiodarone HCl [Pacerone] 200 mg PO DAILY 09/20/20 12/08/23 Metoprolol Tartrate 25 mg PO BID 09/20/20 12/08/23 Rivaroxaban [Xarelto] 20 mg PO HS 09/20/20 12/08/23 Levothyroxine Sodium [Synthroid] 50 mcg PO DAILY 12/08/23 12/08/23 Previous Rx's Medication Instructions Recorded Spironolactone [Aldactone] 25 mg PO DAILY #30 tab 12/23/16 Allergies Allergy/AdvReac Type Severity Reaction Status Date / Time No Known Allergies Allergy Verified 12/08/23 10:36 Review of Systems ROS Other: All systems not noted in ROS Statement are negative. <Ngozi Marvin - Last Filed: 12/08/23 08:38> ROS Other: All systems not noted in ROS Statement are negative. <Geovanny Adler - Last Filed: 12/08/23 10:58> ROS Statement: Those systems with pertinent positive or pertinent negative responses have been documented in the HPI. Past Medical History Past Medical History: Atrial Fibrillation, Hyperlipidemia, Hypertension, Osteoarthritis (OA) Additional Past Medical History / Comment(s): glaucoma (had surgery). History of Any Multi-Drug Resistant Organisms: None Reported Past Surgical History: Cardiac Ablation, Heart Catheterization, Tonsillectomy, Tubal Ligation Additional Past Surgical History / Comment(s): EYE SURGERY-GLAUCOMA. CARDIOVERSION X 3 Past Anesthesia/Blood Transfusion Reactions: No Reported Reaction Additional Past Anesthesia/Blood Transfusion Reaction / Comment(s): no hx blood transfusion Past Psychological History: No Psychological Hx Reported Smoking Status: Never smoker Past Alcohol Use History: None Reported Past Drug Use History: None Reported - Past Family History Father Family Medical History: Cancer Additional Family Medical History / Comment(s): prostate and colon Son(s) Family Medical History: Cancer <Ngozi Marvin - Last Filed: 12/08/23 08:38> General Exam Limitations: no limitations <Ngozi Marvin - Last Filed: 12/08/23 08:38> <Geovanny Adler - Last Filed: 06/05/24 10:58> - General Exam Comments Initial Comments: Visual Physical Exam Vital signs reviewed General: Well-appearing, nontoxic, no acute distress. Head: Normocephalic, atraumatic Eyes: PERRLA, EOMI ENT: Airway patent Chest: Nonlabored breathing Skin: No visual rash, normal skin tone Neuro: Alert and oriented 3 Musculoskeletal: No gross abnormalities (Ngozi Marvin) PHYSICAL EXAM: General Impression: Alert and oriented x3, not in acute distress HEENT: Normocephalic atraumatic, extra-ocular movements intact, pupils equal and reactive to light bilaterally, mucous membranes moist. Cardiovascular: Heart regular rate and rhythm Chest: Able to complete full sentences, no retractions, no tachypnea Abdomen: Palpatory tenderness to the left lower abdomen. There does appear to be some ecchymoses along the lower abdomen and pubis area Musculoskeletal: Pulses present and equal in all extremities, no peripheral edema Motor: no focal deficits noted Neurological: CN II-XII grossly intact, no focal motor or sensory deficits noted Skin: Intact with no visualized rashes Psych: Normal affect and mood (Geovanny Adler) Course Vital Signs 12/08/23 12/08/23 08:17 10:25 Temperature 98 F Pulse Rate 130 H 120 H Respiratory 18 16 Rate Blood Pressure 96/67 115/74 O2 Sat by Pulse 99 100 Oximetry Medical Decision Making <Ngozi Marvin - Last Filed: 12/08/23 08:38> - Lab Data Result diagrams: 12/08/23 08:37 12/08/23 08:37 <Geovanny Adler - Last Filed: 12/08/23 10:58> - Medical Decision Making I performed the QuickNote portion of this chart. Signed Ngozi Marvin PA-C. (Ngozi Marvin) Was pt. sent in by a medical professional or institution (JOLENE Meza, MEDIA ACCOUNT EXECUTIVE, urgent care, hospital, or jail...) When possible be specific @ -No Did you speak to anyone other than the patient for history (EMS, parent, family, police, friend...)? What history was obtained from this source @ -No Did you review nursing and triage notes (agree or disagree)? Why? @ -I reviewed and agree with nursing and triage notes Were old charts reviewed (outside hosp., previous admission, EMS record, old EKG, old radiological studies, urgent care reports/EKG's, jail records)? Report findings @ -No old charts were reviewed Differential Diagnosis (chest pain, altered mental status, abdominal pain women, abdominal pain men, vaginal bleeding, musculoskeletal, weakness, fever, dyspnea, syncope, headache, dizziness, GI bleed, back pain, seizure, CVA, palpatations, mental health)? @ -Differential Abdominal Pain Women: Appendicitis, Cholecystitis, diverticulosis, ischemic bowel, pancreatitis, hepatitis, UTI, gastroenteritis, AAA, incarcerated hernia, bowel obstruction, constipation, inflammatory bowel, hepatitis, peptic ulcer disease, splenic infarction, perforated viscus, vulvitis, ovarian torsion, PID, kidney stone, placenta abruption, this is not meant to be an all-inclusive list EKG interpreted by me (3pts min.). @ -My EKG interpretation: Ventricular rate A-flutter, ventricular rate 122, QRS 120, QTc 416. No OR prolongation, no QTC prolongation, no ST or T-wave changes noted. EKG compared to September 24, 2020 showing no changes. Overall, this EKG is unremarkable X-rays interpreted by me (1pt min.). @ -None done CT interpreted by me (1pt min.). @ -CT of the abdomen pelvis shows large hematoma of the left lower rectus sheath U/S interpreted by me (1pt. min.). @ -None done What testing was considered but not performed or refused? (CT, X-rays, U/S, labs)? Why? @ -None What meds were considered but not given or refused? Why? @ -None Did you discuss the management of the patient with other professionals (professionals i.e. , PA, MEDIA ACCOUNT EXECUTIVE, lab, RT, psych nurse, social media content specialist, vp analysis, t eacher, field crop technical officer, correctional case records supervisor)? Give summary @ -No Was smoking cessation discussed for >3mins.? @ -No Was critical care preformed (if so, how long)? @ -No Were there social determinants of health that impacted care today? How? (Homelessness, low income, unemployed, alcoholism, drug addiction, transportation, low edu. Level, literacy, decrease access to med. care, usp, rehab)? @ -No Was there de-escalation of care discussed even if they declined (Discuss DNR or withdrawal of care, Hospice)? DNR status @ -No What co-morbidities impacted this encounter? (DM, HTN, Smoking, COPD, CAD, Cancer, CVA, ARF, Chemo, Hep., AIDS, mental health diagnosis, sleep apnea, morbid obesity)? @ -None Was patient admitted / discharged? Hospital course, mention meds given and route, prescriptions, significant lab abnormalities, going to OR and other pertinent info. @ -78-year-old female presents emergency department for acute abdominal pain. She has pain in her left lower quadrant. Vital signs upon arrival shows tachycardia. Patient has history of tachycardia. She is scheduled for cardiove rsion on Wednesday with cardiology. Laboratory evaluation obtained. CBC, coag panel metabolic panel obtained. She has hyponatremia 126. CT scan shows large left rectus sheath hematoma. Discussed with patient that recommend hospital admission however she refused because she has to take care of her disabled . She is told to follow-up closely with a primary care doctor and let her life manager know. Patient understands that her hematoma could be enlarging causing anemia and worsening symptoms including significant morbidity and even . Patient understands. She states she feels well and will return to emergency department if her symptoms worse. Undiagnosed new problem with uncertain prognosis? @ -No Drug Therapy requiring intensive monitoring for toxicity (Heparin, Nitro, Ins ulin, Cardizem)? @ -No Were any procedures done? @ -No Diagnosis/symptom? Acute, or Chronic, or Acute on Chronic? Uncomplicated (without systemic symptoms) or Complicated (systemic symptoms)? @ -Rectus sheath hematoma Side effects of treatment? @ -No Exacerbation, Progression, or Severe Exacerbation? @ -No Poses a threat to life or bodily function? How? (Chest pain, [place], [place], pneumonia, PE, COPD, DKA, ARF, appy, cholecystitis, CVA, Diverticulitis, Homicidal, Suicidal, threat to staff... and all critical care pts) @ -yes (Geovanny Adler) - Lab Data Lab Results 12/08/23 12/08/23 12/08/23 Range/Units 08:37 08:37 08:37 WBC 6.8 (3.8-10.6) k/uL RBC 3.07 L (3.80-5.40) m/uL Hgb 10.1 L (11.4-16.0) gm/dL Hct 31.3 L (34.0-46.0) % MCV 101.9 H (80.0-100.0) fL MCH 32.7 (25.0-35.0) pg MCHC 32.1 (31.0-37.0) g/dL RDW 14.2 (11.5-15.5) % Plt Count 327 (150-450) k/uL MPV 8.0 Neutrophils % 83 % Lymphocytes % 11 % Monocytes % 4 % Eosinophils % 1 % Basophils % 1 % Neutrophils # 5.7 (1.3-7.7) k/uL Lymphocytes # 0.8 L (1.0-4.8) k/uL Monocytes # 0.3 (0-1.0) k/uL Eosinophils # 0.1 (0-0.7) k/uL Basophils # 0.0 (0-0.2) k/uL Macrocytosis Slight PT 15.7 H (10.0-12.5) sec INR 1.5 H (<1.2) APTT 26.1 (22.0-30.0) sec Sodium 126 L (137-145) mmol/L Potassium 5.0 (3.5-5.1) mmol/L Chloride 94 L (98-107) mmol/L Carbon Dioxide 27 (22-30) mmol/L Anion Gap 5 mmol/L BUN 22 H (7-17) mg/dL Creatinine 0.87 (0.52-1.04) mg/dL Est GFR (CKD-EPI)AfAm 75 (>60 ml/min/1.73 sqM) Est GFR (CKD-EPI)NonAf 65 (>60 ml/min/1.73 sqM) Glucose 104 H (74-99) mg/dL Plasma Lactic Acid Vadim (0.7-2.0) mmol/L Calcium 8.9 (8.4-10.2) mg/dL Total Bilirubin 2.2 H (0.2-1.3) mg/dL AST 31 (14-36) U/L ALT 18 (4-34) U/L Alkaline Phosphatase 71 (38-126) U/L Total Protein 6.1 L (6.3-8.2) g/dL Albumin 3.6 (3.5-5.0) g/dL Amylase 51 (30-110) U/L Lipase 138 (23-300) U/L 12/08/23 Range/Units 08:37 WBC (3.8-10.6) k/uL RBC (3.80-5.40) m/uL Hgb (11.4-16.0) gm/dL Hct (34.0-46.0) % MCV (80.0-100.0) fL MCH (25.0-35.0) pg MCHC (31.0-37.0) g/dL RDW (11.5-15.5) % Plt Count (150-450) k/uL MPV Neutrophils % % Lymphocytes % % Monocytes % % Eosinophils % % Basophils % % Neutrophils # (1.3-7.7) k/uL Lymphocytes # (1.0-4.8) k/uL Monocytes # (0-1.0) k/uL Eosinophils # (0-0.7) k/uL Basophils # (0-0.2) k/uL Macrocytosis PT (10.0-12.5) sec INR (<1.2) APTT (22.0-30.0) sec Sodium (137-145) mmol/L Potassium (3.5-5.1) mmol/L Chloride (98-107) mmol/L Carbon Dioxide (22-30) mmol/L Anion Gap mmol/L BUN (7-17) mg/dL Creatinine (0.52-1.04) mg/dL Est GFR (CKD-EPI)AfAm (>60 ml/min/1.73 sqM) Est GFR (CKD-EPI)NonAf (>60 ml/min/1.73 sqM) Glucose (74-99) mg/dL Plasma Lactic Acid Vadim 1.2 (0.7-2.0) mmol/L Calcium (8.4-10.2) mg/dL Total Bilirubin (0.2-1.3) mg/dL AST (14-36) U/L ALT (4-34) U/L Alkaline Phosphatase (38-126) U/L Total Protein (6.3-8.2) g/dL Albumin (3.5-5.0) g/dL Amylase (30-110) U/L Lipase (23-300) U/L Disposition <Vogley,Ngozi - Last Filed: 12/08/23 08:38> Is patient prescribed a controlled substance at d/c from ED?: No Time of Disposition: 10:58 <Geovanny Adler - Last Filed: 12/08/23 10:58> Clinical Impression: Rectus sheath hematoma Disposition: HOME SELF-CARE Condition: Fair Instructions (If sedation given, give patient instructions): Hematoma (ED) Referrals: Unique Hilliard MD [Primary Care Provider] - 1-2 days
[2023-12-08 08:47] LABS: Basophils % (A) 1 %; Eosinophils # (A) 0.1 k/uL (0-0.7); Eosinophils % (A) 1 %; HCT 31.3 % (34.0-46.0); HGB 10.1 gm/dL (11.4-16.0); Lymphocytes # (A) 0.8 k/uL (1.0-4.8); Lymphocytes % (A) 11 %; MCH 32.7 pg (25.0-35.0); MCHC 32.1 g/dL (31.0-37.0); MCV 101.9 fL (80.0-100.0); Macrocytosis Slight; Monocytes # (A) 0.3 k/uL (0-1.0); Monocytes % (A) 4 %; Neutrophils # (A) 5.7 k/uL (1.3-7.7); Neutrophils % (A) 83 %; Platelet Count 327 k/uL (150-450); RBC 3.07 m/uL (3.80-5.40); RDW 14.2 % (11.5-15.5); WBC 6.8 k/uL (3.8-10.6)
[2023-12-08 08:59] LABS: ALT 18 U/L (4-34); African American GFR (CKD) 75 (>60 ml/min/1.73 sqM); Albumin 3.6 g/dL (3.5-5.0); Amylase 51 U/L (30-110); Anion Gap 5 mmol/L; Blood Urea Nitrogen 22 mg/dL (7-17); Calcium 8.9 mg/dL (8.4-10.2); Carbon Dioxide 27 mmol/L (22-30); Chloride 94 mmol/L (98-107); Glucose 104 mg/dL (74-99); Lipase 138 U/L (23-300); Non-African American GFR(CKD) 65 (>60 ml/min/1.73 sqM); Sodium 126 mmol/L (137-145); Total Bilirubin 2.2 mg/dL (0.2-1.3); Total Protein 6.1 g/dL (6.3-8.2)
[2023-12-08 09:16] LABS: INR 1.5 (<1.2); Partial Thromboplastin Time 26.1 sec (22.0-30.0); Prothrombin Time 15.7 sec (10.0-12.5)
[2023-12-08 09:20] LABS: AST 31 U/L (14-36); Alkaline Phosphatase 71 U/L (38-126)
--- NOTE | 2023-12-08 10:12 | CT ---
EXAMINATION TYPE: CT abdomen pelvis w con DATE OF EXAM: 12/08/2023 COMPARISON: NONE HISTORY: 78-year-old female Lower pelvic and abdominal pain and bruising. No injury. TECHNIQUE: Contiguous axial scanning of the abdomen and pelvis following administration of 100 ml Iso mayo 300 IV contrast. Delayed images through the kidneys and coronal/sagittal reconstructions perform ed. CT DLP: 924.8 mGycm Automated exposure control for dose reduction was used. FINDINGS: The heart is mildly enlarged without pericardial effusion. Patchy density inferior lingula, likely atelectasis. Small fat-containing left-sided Bochdalek hernia. A few scattered hepatic cysts are present, largest posterior right liver lobe measuring up to 3.8 cm. Portal venous system is patent. No biliary ductal dilatation. Some focal fat along the anterior falc iform ligament. Gallbladder, adrenal glands, spleen, and pancreas within normal limits. Bilateral renal cortical cysts, largest measuring 3.5 cm on the left and 3.2 cm on the right. Symmetr ic uptake and excretion of contrast from both kidneys. There appears to be moderate stenosis of the origin of the celiac axis and severe stenosis of the alana gin of the SMA. No dilated small bowel, free fluid, or free air. No mesenteric or retroperitoneal lymphadenopathy. Mi ld overall stool burden. There is mild scattered colonic diverticulosis. No pericolonic inflammatory change. Mild circumference of bladder wall thickening. Uterus anteverted. Both ovaries are visualized. There is a hematoma of the left rectus sheath and left lower quadrant anterior abdominal wall muscle layer. Hematoma measures up to 9.0 cm wide by 3.5 cm thick spanning 13.7 cm craniocaudal extending to the anterior left pelvic floor. Short interval follow-up to ensure gradual involution given the mass like appearance. Some mild is fat stranding of the adjacent soft tissues likely bruising. Bones: Degenerative bony ankylosis L5-S1. Advanced hypertrophic facet arthropathy mid to lower lumbar spine with grade 1, nearly grade 2 anterolisthesis at L4-L5 and moderate degenerative disc disease. IMPRESSION: 1. HEMATOMA OF THE LOWER LEFT RECTUS SHEATH CONTIGUOUS WITH LEFT LOWER QUADRANT ANTERIOR ABDOMINAL WA LL INTRAMUSCULAR HEMATOMA EXTENDING DOWN TO THE ANTERIOR LEFT PELVIC FLOOR. HEMATOMA MEASURES UP TO 1 3.7 CM CRANIOCAUDAL, 9.0 CM WIDE, AND 3.5 CM THICK. RECOMMEND 6-8 WEEK FOLLOW-UP CT TO ENSURE GRADUAL INVOLUTION GIVEN THE MASSLIKE APPEARANCE IN SOME REGIONS. 2. 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 3. MILD CIRCUMFERENTIAL BLADDER WALL THICKENING MAY BE CHRONIC FOR THE PATIENT. CORRELATE TO EXCLUDE CYSTITIS.
[2023-12-08 10:26] VITALS: BP 115/74; PULSE 120; RESP 16
== END 2023-12-08 11:25 | disposition home or self-care (01) ==
LOC: EC 08:13
DX: M79.81 Nontraumatic hematoma of soft tissue (principal)
CPT/HCPCS: 36415; 93005; 80053; 82150; 83605; 83690; 85025; 85610; 85730; 74177; 99284; Q9967

== ENCOUNTER 2023-12-10 05:57 | Day surgery (SDC) | payer MEDICARE ==
[2023-12-10] MEDS: SODIUM CHLORIDE 0.9% 500 ML 500 ML IV SCH (06:59)
[2023-12-10] MEDS: IV FLUID CONTINUATION 1,000 ML IV ONE (06:59)
[2023-12-10] MEDS ORDERED: PHENYLEPHRINE-0.9% NACL SYG 1,000 MCG/10 ML SYRINGE ONE (07:12)
[2023-12-10] MEDS ORDERED: LIDOCAINE 1% INJ 10MG/ML (20 ML MDV) ONE (07:12)
[2023-12-10] MEDS ORDERED: PROPOFOL 10 MG/ML 20 ML VIAL IV ONE (07:12)
[2023-12-10] MEDS: BENZOCAINE SPRAY 1 CAN TOPICAL ONE (07:13)
--- NOTE | 2023-12-10 07:44 | P.PCN ---
Date of Procedure: 12/10/23 Description of Procedure: Indication: Atrial flutter Procedure Description: After explaining the procedure to the patient, it's risk and complications, blood pressure, heart rate and O2 saturation were monitored. The throat was sprayed with Cetacaine. Patient received sedation per anesthesia department. The probe was introduced into the esophagus without difficulty. Images were obtained. Following that, the probe was removed. There was no immediate complication. Findings: Left atrial size is severely dilated, left atrial appendage is normal. Left ventricle systolic function is severely impaired with global hypokinesis. Ejection fraction is estimated at 30 to 35% with global hypokinesis. Mild t hickening of the mitral valve leaflets was noted. The aortic valve appears to be normal. Tricuspid valve is normal. Pulmonic valve is normal. Descending thoracic aorta revealed mild atherosclerotic changes. No pericardial fusion was noted. Contrast bubble study revealed no shunting across the interatrial septum. Doppler: Pulse wave and color Doppler were obtained, and revealed moderate multi jet mitral regurgitation with moderate tricuspid regurgitation. There was no shunting by color Doppler study. Conclusion: 1. Dilated left atrium with normal appearance of the left atrial appendage 2. Severe global hypokinesis of the left ventricle 3. Moderate mitral and tricuspid regurgitation 4. Mild atherosclerotic changes of the descending thoracic aorta 5. No shunting across the interatrial septum. Cardioversion: After obtaining MADDY and sedated state a synchronized biphasic cardioversion using 150 J was performed with orthodoxy of sinus mechanism. There was no immediate complications.
[2023-12-10 07:59] VITALS: TEMP 97.2
[2023-12-10 08:49] VITALS: BP 101/58; PULSE 46; RESP 17
[2023-12-10] MEDS ORDERED: RIVAROXABAN 20 MG TAB PO SCH (21:00)
[2023-12-10] MEDS ORDERED: ATORVASTATIN 20 MG TAB PO SCH (21:00)
[2023-12-11] MEDS ORDERED: LEVOTHYROXINE 50 MCG TAB PO SCH (06:30)
[2023-12-11] MEDS ORDERED: SPIRONOLACTONE 25 MG TAB PO SCH (09:00)
[2023-12-11] MEDS ORDERED: TIMOLOL 0.5% OPHTH DROPS 5 ML BTL BOTH EYES SCH (09:00)
[2023-12-12] MEDS ORDERED: LEVOTHYROXINE 75 MCG TAB PO SCH (06:30)
== END 2023-12-10 09:10 | disposition home or self-care (01) ==
LOC: OR 05:57
PROVIDERS: ATTEND Internal Medicine Interventional Cardiology
DX: I48.3 Typical atrial flutter (principal); I48.0 Paroxysmal atrial fibrillation; I08.1 Rheumatic disorders of both mitral and tricuspid valves; I70.0 Atherosclerosis of aorta; I42.8 Other cardiomyopathies; I10 Essential (primary) hypertension; E78.2 Mixed hyperlipidemia; Z86.16 Personal history of COVID-19; Z79.890 Hormone replacement therapy; Z88.8 Allergy status to other drugs, medicaments and biological substances; Z79.899 Other long term (current) drug therapy; Z79.01 Long term (current) use of anticoagulants
CPT/HCPCS: 93312; 93320; 93325; 92960; J2001; J2704; J2371

== ENCOUNTER 2024-01-06 13:26 | Emergency (ER) | payer MEDICARE ==
[2024-01-06 13:31] VITALS: RESP 18; TEMP 97.6
--- NOTE | 2024-01-06 13:32 | ED ---
General Adult HPI - General Stated complaint: Fall Time Seen by Provider: 01/06/24 13:26 Source: patient, RN notes reviewed, old records reviewed - History of Present Illness Initial comments: This is a 78-year-old female who presents to the emergency department after she tripped and fell and hit her face and left wrist on the ground. Patient states she did not hit her head she did not nauseous and was not days. Patient denies neck pain patient Nuys numbness or weakness. Patient states her nose hurts and her lips hurt patient denies any chest pain or back pain. Patient denies any other extremity pain. Patient is able to move both legs with out problem - Related Data Home Medications Medication Instructions Recorded Confirmed Atorvastatin [Lipitor] 20 mg PO HS 01/06/14 12/10/23 Multivitamins, Thera [Multivitamin 1 tab PO DAILY 02/05/17 12/10/23 (formulary)] Timolol 0.5% Ophth Soln [Timoptic 1 drop BOTH EYES DAILY 05/23/20 12/10/23 0.5% Ophth Soln] Amiodarone HCl [Pacerone] 200 mg PO DAILY 09/20/20 12/10/23 Metoprolol Tartrate 25 mg PO BID 09/20/20 12/10/23 Rivaroxaban [Xarelto] 20 mg PO HS 09/20/20 12/10/23 Levothyroxine Sodium [Synthroid] 50 mcg PO MOTUTHFRSA 12/08/23 12/10/23 Levothyroxine Sodium [Synthroid] 75 mcg PO SUWE 12/08/23 12/10/23 Previous Rx's Medication Instructions Recorded Spironolactone [Aldactone] 25 mg PO DAILY #30 tab 12/23/16 Allergies Allergy/AdvReac Type Severity Reaction Status Date / Time No Known Allergies Allergy Verified 01/06/24 13:31 Review of Systems ROS Statement: Those systems with pertinent positive or pertinent negative responses have been documented in the HPI. ROS Other: All systems not noted in ROS Statement are negative. Past Medical History Past Medical History: Atrial Fibrillation, Hyperlipidemia, Hypertension, Oste oarthritis (OA) Additional Past Medical History / Comment(s): glaucoma (had surgery). History of Any Multi-Drug Resistant Organisms: None Reported Past Surgical History: Cardiac Ablation, Heart Catheterization, Tonsillectomy, Tubal Ligation Additional Past Surgical History / Comment(s): EYE SURGERY-GLAUCOMA. CARDIOVERSION X 3 Past Anesthesia/Blood Transfusion Reactions: No Reported Reaction Additional Past Anesthesia/Blood Transfusion Reaction / Comment(s): no hx blood transfusion Smoking Status: Never smoker - Past Family History Father Family Medical History: Cancer Additional Family Medical History / Comment(s): prostate and colon Son(s) Family Medical History: Cancer Additional Family Medical History / Comment(s): lymphoma General Exam - General Exam Comments Initial Comments: GENERAL: Patient is well-developed and well-nourished. Patient is nontoxic and well- hydrated and is in mild distress. ENT: Neck is soft and supple. No significant lymphadenopathy is noted. Oropharynx is clear. Moist mucous membranes. Neck has full range of motion without eliciting any pain. Patient has tenderness and swelling of the nose there is a abrasion to the upper and lower lip teeth are intact and no tenderness EYES: The sclera were anicteric and conjunctiva were pink and moist. Extraocular movements were intact and pupils were equal round and reactive to light. Eyelids were unremarkable. PULMONARY: Unlabored respirations. Good breath sounds bilaterally. No audible rales rhonchi or wheezing was noted. CARDIOVASCULAR: There is a regular rate and rhythm without any murmurs gallops or rubs. ABDOMEN: Soft and nontender with normal bowel sounds. SKIN: Skin is clear with no lesions or rashes and otherwise unremarkable. NEUROLOGIC: Patient is alert and oriented x3. Cranial nerves II through XII are grossly intact. Motor and sensory are also intact. Normal speech, volume and content. Symmetrical smile. MUSCULOSKELETAL: Left wrist has a gross deformity at the wrist LYMPHATICS: No significant lymphadenopathy is noted PSYCHIATRIC: Normal psychiatric evaluation. Course Vital Signs 01/06/24 01/06/24 13:27 13:54 Temperature 97.6 F Pulse Rate 97 97 Respiratory 18 18 Rate Blood Pressure 90/60 98/68 O2 Sat by Pulse 94 L 97 Oximetry Procedures - Orthopedic Splinting/Casting Injury #1 Side: left Upper Extremity Immobilizer: sugar tong splint Medical Decision Making - Medical Decision Making Was pt. sent in by a medical professional or institution (, PA, OVEN OPERATOR, urgent care, hospital, or correction...) When possible be specific @ -No Did you speak to anyone other than the patient for history (EMS, parent, family, police, friend...)? What history was obtained from this source @ -No Did you review nursing and triage notes (agree or disagree)? Why? @ -I reviewed and agree with nursing and triage notes Were old charts reviewed (outside hosp., previous admission, EMS record, old EKG, old radiological studies, urgent care reports/EKG's, correction records)? Report findings @ -No old charts were reviewed Differential Diagnosis? @ -Differential Musculoskeletal Muscular strain, contusion, ligament sprain, fracture, arthritis, septic arthritis, bursitis, cellulitis, muscle spasm, nerve compression, DVT, arterial occlusion, herpes zoster, electrolyte abnormality, tumor.... This is not meant to be in all inclusive list EKG interpreted by me (3pts min.). @ -As above X-rays interpreted by me (1pt min.). @ -X-ray of the wrist shows a distal radius and ulnar fracture with some mild posterior angulation CT interpreted by me (1pt min.). @ -CT of the brain shows no acute abnormality CT of the C-spine shows no acute normality CT of the facial bones showing no acute abnormality U/S interpreted by me (1pt. min.). @ -None done What testing was considered but not performed or refused? (CT, X-rays, U/S, labs)? Why? @ -None What meds were considered but not given or refused? Why? @ -None Did you discuss the management of the patient with other professionals (professionals i.e. , PA, OVEN OPERATOR, lab, RT, psych nurse, manager social responsibility, smoking tobacco cutter operator, teacher, neighborhood conservation officer, upper caser)? Give summary @ -No Was smoking cessation discussed for >3mins.? @ -No Was critical care preformed (if so, how long)? @ -No Were there social determinants of health that impacted care today? How? (Homelessness, low income, unemployed, alcoholism, drug addiction, transportation, low edu. Level, literacy, decrease access to med. care, halfway, rehab)? @ -No Was there de-escalation of care discussed even if they declined (Discuss DNR or withdrawal of care, Hospice)? DNR status @ -No What co-morbidities impacted this encounter? (DM, HTN, Smoking, COPD, CAD, Cancer, CVA, ARF, Chemo, Hep., AIDS, mental health diagnosis, sleep apnea, morbid obesity)? @ -None Was patient admitted / discharged? Hospital course, mention meds given and route, prescriptions, significant lab abnormalities, going to OR and other pertinent info. @ -Patient received a splint for the fractured wrist. Patient also received tetanus for the abrasions on her upper and lower lip. Patient did have some nasal swelling but at this time it did not appear to be a fracture Undiagnosed new problem with uncertain prognosis? @ -No Drug Therapy requiring intensive monitoring for toxicity (Heparin, Nitro, Insulin, Cardizem)? @ -No Were any procedures done? @ -No Diagnosis/symptom? @ -Wrist fracture Acute, or Chronic, or Acute on Chronic? @ -Acute Uncomplicated (without systemic symptoms) or Complicated (systemic symptoms)? @ -Uncomplicated Side effects of treatment? @ -No Exacerbation, Progression, or Severe Exacerbation? @ -No Poses a threat to life or bodily function? How? (Chest pain, [place], [place], pneumonia, PE, COPD, DKA, ARF, appy, cholecystitis, CVA, Diverticulitis, Homicidal, Suicidal, threat to staff... and all critical care pts) @ -No Diagnosis/symptom? @ -Fall Acute, or Chronic, or Acute on Chronic? @ -Acute Uncomplicated (without systemic symptoms) or Complicated (systemic symptoms)? @ -Complicated Side effects of treatment? @ -None Exacerbation, Progression, or Severe Exacerbation] @ -No Poses a threat to life or bodily function? @ -No Diagnosis/symptom? @ -Abrasion lip Acute, or Chronic, or Acute on Chronic? @ -Acute Uncomplicated (without systemic symptoms) or Complicated (systemic symptoms)? @ -Uncomplicated Side effects of treatment? @ -None Exacerbation, Progression, or Severe Exacerbation] @ -No Poses a threat to life or bodily function? @ -No Disposition Clinical Impression: Fall, Fracture of radial shaft with ulna, closed Disposition: HOME SELF-CARE Instructions (If sedation given, give patient instructions): Wrist Fracture in Adults (ED) Is patient prescribed a controlled substance at d/c from ED?: No Referrals: Rishi Michael MD [Medical Doctor] - 1-2 days Time of Disposition: 15:17
[2024-01-06] MEDS: DIPH,PERTUS(ACELL)TETVAC-LF 0.5 ML VIAL IM ONE (13:55)
--- NOTE | 2024-01-06 14:01 | XR ---
EXAMINATION TYPE: XR wrist complete LT DATE OF EXAM: 01/06/2024 1:42 PM CLINICAL INDICATION:Female, 78 years old with history of Trauma; [facility] COMPARISON: None TECHNIQUE: XR wrist complete LT; examined in the Frontal, navicular, lateral, and oblique. FINDINGS/IMPRESSION: * Distal radius and ulna fracture with dorsal angulation of the radius and intra-articular extension of the radius. * Soft tissue swelling around the wrist.
--- NOTE | 2024-01-06 14:32 | CT ---
EXAMINATION TYPE: CT brain cspine wo con, CT facial bones wo con CT DLP: 759.4 (accession [id number]), 278.8 (accession [id number]) mGycm, Automated exposure control for dose reduction was used. DATE OF EXAM: 01/06/2024 1:59 PM COMPARISON: None. CLINICAL INDICATION:Female, 78 years old with history of Trauma; fall TECHNIQUE: Brain: Multiple axial CT images of the brain were obtained without IV contrast. Cspine: Axial CT images from the skull base to the inferior aspect of T2 we obtained without intraven ous contrast. Coronal and sagittal reformatted images were also reviewed. Facial: Axial imaging max of facial structures with sagittal coronal reformats. FINDINGS: Brain: Extra-axial spaces: No abnormal extra-axial fluid collections. Ventricular system: Dilatation in proportion to cerebral atrophy. Cerebral parenchyma: Cerebral atrophy. No acute intraparenchymal hemorrhage or mass effect. The shoemaker -white junction is well differentiated. Scattered hypoattenuating areas are seen within the white mat ter. Cerebellum: Unremarkable. Mass effect: No evidence of midline shift. Intracranial vasculature: unremarkable Soft tissues: Normal. Calvarium/osseous structures: No depressed skull fracture. Paranasal sinuses and mastoid air cells: Clear. Visualized orbits: Bilateral aphakia Cervical spine: Fracture: None. Osseous structures: Multilevel degenerative disc disease changes with endplate spurring and disc oste ophyte complex's. Vertebral alignment: Within normal limits. Spinal canal/Neural Foramina: No evidence of significant spinal canal narrowing. No evidence for sign ificant neural foraminal stenosis. Neck soft tissues: Prevertebral soft tissues are within normal limits. Other: The airway is patent. The lung apices are clear. Facial:There is no evidence of fracture, subluxation, dislocation, or significant soft tissue swellin g. The orbital contents are unremarkable.The temporal-mandibular joints appear symmetric. The visuali zed portion of the paranasal sinuses appear clear. IMPRESSION: 1. No acute intracranial process. 2. Nonspecific white matter changes, likely secondary to chronic small vessel ischemic disease. 3. No evidence of cervical spine fracture. 4. Mild multilevel degenerative disc disease.
[2024-01-06 15:41] VITALS: BP 101/77; PULSE 101
== END 2024-01-06 15:34 | disposition home or self-care (01) ==
LOC: EC 13:26
DX: S52.572A Other intraarticular fracture of lower end of left radius, initial encounter for closed fracture (principal); S52.202A Unspecified fracture of shaft of left ulna, initial encounter for closed fracture; S00.511A Abrasion of lip, initial encounter; Z23 Encounter for immunization; W01.10XA Fall on same level from slipping, tripping and stumbling with subsequent striking against unspecified object, initial encounter
CPT/HCPCS: 29125; 70450; 70486; 72125; 90471; 90715; 99284

== ENCOUNTER → 2024-02-09 | Outpatient (CLI) | payer MEDICARE | END | disposition home or self-care (01) | LOC: LABWHC1 11:19 | PROVIDERS: ATTEND Family Medicine | DX: I10 Essential (primary) hypertension | CPT/HCPCS: 36415; 80053; 83880; 84439; 84443; 86803 ==

== ENCOUNTER 2024-06-01 14:57 | Emergency (ER) | payer MEDICARE ==
[2024-06-01 15:05] VITALS: PULSE 48; RESP 16; TEMP 97.9
[2024-06-01] MEDS: MORPHINE SULFATE 4 MG/ML SYRINGE IM STA (15:56)
--- NOTE | 2024-06-01 16:10 | CT ---
EXAMINATION TYPE: CT brain cspine wo con DATE OF EXAM: 06/01/2024 3:32 PM COMPARISON: Previous study 01/06/2024. 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 Cspine: Axial CT images from the skull base to the inferior aspect of T2 we obtained without intraven ous contrast. Coronal and sagittal reformatted images were also reviewed. . CT DLP: 1315.4 mGycm, Automated exposure control for dose reduction was used. FINDINGS: Brain: No acute intracranial hemorrhage, midline shift or significant acute mass effect. No sizable extra-ax ial fluid collection. Ventricles and sulci are within normal limits for size. Basal cisterns appear p atent. Patchy periventricular and subcortical white matter hypoattenuation likely reflecting chronic vessel ischemia. No depressed calvarial fracture. Possible posterior left parietal scalp hematoma. Cervical spine: No acute fracture or traumatic subluxation. Mild straightening of the normal cervical spondylotic cur vature. No significant prevertebral soft tissue swelling. Multilevel intervertebral disc space loss, most pronounced at C4-C5. Additionally, there are varying degrees of neural foraminal narrowing and s mihir canal stenosis secondary to multilevel facet arthropathy/uncovertebral hypertrophy and collimat ion posterior disc ossify complexes. Evaluation of the spinal canal suboptimal due to streak artifact . No pathologic cervical chain lymphadenopathy. Partially visualized thyroid gland demonstrate hypodens e nodule in the left thyroid lobe. IMPRESSION: 1. No acute intracranial process. 2. No acute fracture or subluxation of cervical spine. 3. Multilevel cervical spine degenerative changes. [facility], , 06/01/2024 4:08 PM
--- NOTE | 2024-06-01 16:11 | ED ---
General Adult HPI - General Chief complaint: Fall Stated complaint: Fall-Head Injury Time Seen by Provider: 06/01/24 15:04 Source: patient, EMS, RN notes reviewed Mode of arrival: EMS Limitations: no limitations - History of Present Illness Initial comments: 78-year-old female presents to the emergency department for evaluation of a fall with head injury. Patient reports that she was walking down the stairs when she tripped and fell backwards hitting her head. She reports that she fell on the last step. She denies any preceding symptoms before falling. She does report that she is on Xarelto. She denies loss of consciousness. Patient admits to some low back pain. Patient also reports a hematoma to her scalp. - Related Data Home Medications Medication Instructions Recorded Confirmed Atorvastatin [Lipitor] 20 mg PO HS 01/06/14 06/01/24 Timolol 0.5% Ophth Soln [Timoptic 1 drop BOTH EYES DAILY 05/23/20 06/01/24 0.5% Ophth Soln] Amiodarone HCl [Pacerone] 200 mg PO DAILY 09/20/20 06/01/24 Metoprolol Tartrate 12.5 mg PO BID 09/20/20 06/01/24 Rivaroxaban [Xarelto] 20 mg PO HS 09/20/20 06/01/24 Levothyroxine Sodium [Synthroid] 50 mcg PO MOTUTHFRSA 12/08/23 06/01/24 Levothyroxine Sodium [Synthroid] 75 mcg PO SUWE 12/08/23 06/01/24 Empagliflozin [Jardiance] 10 mg PO HS 06/01/24 06/01/24 Previous Rx's Medication Instructions Recorded Spironolactone [Aldactone] 25 mg PO DAILY #30 tab 12/23/16 Lidocaine 5% Patch [Lidoderm 5% 1 patch TOPICAL DAILY #30 patch 06/01/24 Patch] Allergies Allergy/AdvReac Type Severity Reaction Status Date / Time No Known Allergies Allergy Verified 06/01/24 16:15 Review of Systems ROS Statement: Those systems with pertinent positive or pertinent negative responses have been documented in the HPI. ROS Other: All systems not noted in ROS Statement are negative. Past Medical History Past Medical History: Atrial Fibrillation, Hyperlipidemia, Hypertension, Osteoarthritis (OA) Additional Past Medical History / Comment(s): glaucoma (had surgery). History of Any Multi-Drug Resistant Organisms: None Reported Past Surgical History: Cardiac Ablation, Heart Catheterization, Tonsillectomy, Tubal Ligation Additional Past Surgical History / Comment(s): EYE SURGERY-GLAUCOMA. CARDIOVERSION X 3 Past Anesthesia/Blood Transfusion Reactions: No Reported Reaction Additional Past Anesthesia/Blood Transfusion Reaction / Comment(s): no hx blood transfusion Past Psychological History: No Psychological Hx Reported Smoking Status: Never smoker - Past Family History Father Family Medical History: Cancer Additional Family Medical History / Comment(s): prostate and colon Son(s) Family Medical History: Cancer Additional Family Medical History / Comment(s): lymphoma General Exam Limitations: no limitations General appearance: alert, in no apparent distress Head exam: Present: other (scalp hematoma present to left occipital region) Eye exam: Present: normal appearance, PERRL, EOMI. Absent: scleral icterus, conjunctival injection, periorbital swelling ENT exam: Present: normal exam, mucous membranes moist Neck exam: Present: normal inspection, full ROM. Absent: tenderness, meningismus, lymphadenopathy Respiratory exam: Present: normal lung sounds bilaterally. Absent: respiratory distress, wheezes, rales, rhonchi, stridor Cardiovascular Exam: Present: regular rate, normal rhythm, normal heart sounds. Absent: systolic murmur, diastolic murmur, rubs, gallop, clicks GI/Abdominal exam: Present: soft, normal bowel sounds. Absent: distended, tenderness, guarding, rebound, rigid Extremities exam: Present: normal inspection, full ROM, normal capillary refill. Absent: tenderness, pedal edema, joint swelling, calf tenderness Back exam: Present: full ROM, tenderness. Absent: CVA tenderness (R), CVA tenderness (L) Neurological exam: Present: alert, oriented X3, CN II-XII intact Psychiatric exam: Present: normal affect, normal mood Skin exam: Present: warm, dry, intact, normal color. Absent: rash Course Vital Signs 06/01/24 06/01/24 15:01 17:30 Temperature 97.9 F Pulse Rate 48 L 48 L Respiratory 16 16 Rate Blood Pressure 153/77 115/54 O2 Sat by Pulse 97 99 Oximetry Medical Decision Making - Medical Decision Making Was pt. sent in by a medical professional or institution (, PA, STUDENT SERVICES [facility], urgent care, hospital, or group home...) When possible be specific @ -No Did you speak to anyone other than the patient for history (EMS, parent, family, police, friend...)? What history was obtained from this source @ -No Did you review nursing and triage notes (agree or disagree)? Why? @ -I reviewed and agree with nursing and triage notes Were old charts reviewed (outside hosp., previous admission, EMS record, old EKG, old radiological studies, urgent care reports/EKG's, group home records)? Report findings @ -No old charts were reviewed Differential Diagnosis (chest pain, altered mental status, abdominal pain women, abdominal pain men, vaginal bleeding, weakness, fever, dyspnea, syncope, headache, dizziness, GI bleed, back pain, seizure, CVA, palpatations, mental health, musculoskeletal)? @ -Fall, head injury, intracranial hemorrhage, concussion, this list not all inclusive Differential Back Pain: Strain, zoster, cauda equina syndrome, epidural abscess, vertebral osteomyelitis, discitis, fracture, subluxation, disc herniation, DJD, spinal stenosis, dissection, AAA, pancreatitis, peptic ulcer disease, pyelonephritis, kidney stone, this is not meant to be an all-inclusive list. EKG interpreted by me (3pts min.). @ -None X-rays interpreted by me (1pt min.). @ -None done CT interpreted by me (1pt min.). @ -CT brain and C-spine reveals no evidence for acute intracranial hemorrhage or C-spine fracture or traumatic malalignment CT of the lumbar spine showsNo acute fracture or traumatic subluxation, multilevel degenerative changes in the lumbar spine U/S interpreted by me (1pt. min.). @ -None done What testing was considered but not performed or refused? (CT, X-rays, U/S, labs)? Why? @ -None What meds were considered but not given or refused? Why? @ -None Did you discuss the management of the patient with other professionals (professionals i.e. , PA, STUDENT SERVICES DEAN, lab, RT, psych nurse, web content & social media manager, reconnaissance man, teacher, chairman and chief executive officer, case management manager)? Give summary @ -No Was smoking cessation discussed for >3mins.? @ -No Was critical care preformed (if so, how long)? @ -No Were there social determinants of health that impacted care today? How? (Homelessness, low income, unemployed, alcoholism, drug addiction, transportation, low edu. Level, literacy, decrease access to med. care, residential, rehab)? @ -No Was there de-escalation of care discussed even if they declined (Discuss DNR or withdrawal of care, Hospice)? DNR status @ -No What co-morbidities impacted this encounter? (DM, HTN, Smoking, COPD, CAD, Cancer, CVA, ARF, Chemo, Hep., AIDS, mental health diagnosis, sleep apnea, morbid obesity)? @ -None Was patient admitted / discharged? Hospital course, mention meds given and route, prescriptions, significant lab abnormalities, going to OR and other pertinent info. @ -Discharge. Patient presented to the emergency department for evaluation of fall on blood thinners. Upon initial evaluation, patient is in c-collar. Patient does have a hematoma to her scalp. Patient was called as a code coag as she, hitting her head on blood thinners and is not altered. Patient underwent CT brain and C-spine revealing no acute intracranial process, no evidence for C- spine fracture or traumatic malalignment. She also underwent CT of the lumbar spine revealing no evidence of acute fracture or traumatic subluxation, multilevel degenerative changes apparent. Patient able to ambulate without limitations. Discussed return precautions. She will be discharged home. She is understanding and agreeable with this plan. Case discussed with Dr. Whitmore Undiagnosed new problem with uncertain prognosis? @ -No Drug Therapy requiring intensive monitoring for toxicity (Heparin, Nitro, Insulin, Cardizem)? @ -No Were any procedures done? @ -No Diagnosis/symptom? @ -Head injury, scalp hematoma Acute, or Chronic, or Acute on Chronic? @ -Acute Uncomplicated (without systemic symptoms) or Complicated (systemic symptoms)? @ -Uncomplicated Side effects of treatment? @ -No Exacerbation, Progression, or Severe Exacerbation? @ -No Poses a threat to life or bodily function? How? (Chest pain, [place], [place], pneumonia, PE, COPD, DKA, ARF, appy, cholecystitis, CVA, Diverticulitis, Homicidal, Suicidal, threat to staff... and all critical care pts) @ -No Disposition Clinical Impression: Fall, Scalp hematoma, Back pain Disposition: HOME SELF-CARE Condition: Stable Instructions (If sedation given, give patient instructions): Fall Prevention for Older Adults (ED) Additional Instructions: Please follow up with your primary care provider. Return to the emergency department for new or worsening symptoms. Prescriptions: Lidocaine 5% Patch [Lidoderm 5% Patch] 1 patch TOPICAL DAILY #30 patch Is patient prescribed a controlled substance at d/c from ED?: No Referrals: Unique Hilliard MD [Primary Care Provider] - 1-2 days
--- NOTE | 2024-06-01 16:41 | CT ---
EXAMINATION TYPE: CT lumbar spine wo con DATE OF EXAM: 06/01/2024 3:32 PM COMPARISON: None available. CLINICAL INDICATION: Female, 78 years old with history of fall; [facility], Pt had fall off one step, fell b ackwards hit head on concrete, hematoma to back of head, mid back pain, on Xarelto, no LOC TECHNIQUE: Multiple axial images were obtained from the midportion of T11 through the sacroiliac annetta nts. Soft tissue and bone windows in coronal and sagittal planes were obtained and reviewed. 3-D ref ormats of the bones were created on a separate workstation and submitted for review. CT DLP: 753.4 mGycm, Automated exposure control for dose reduction was used. FINDINGS: Alignment: There are 5 lumbar type vertebral bodies within normal alignment assuming T12 as the last rib-bearing vertebral body. Partially sacralized L5. Bone: No evidence of fracture is identified. Multilevel degeneration changes with osteophyte formati on, disc space narrowing, facet joint arthropathy. Partially visualized simple appearing cysts in the kidneys and liver. Discs: T12-L1: No spinal canal or neural foraminal stenosis is identified. L1-L2: No spinal canal or neural foraminal stenosis is identified. L2-L3: No spinal canal or neural foraminal stenosis is identified. Facet arthropathy and circumferent ial disc bulging cause thecal sac effacement. L3-L4: Posterior circumflex compression disc bulging in combination with ligament of flavum hypertrop hy/facet arthropathy cause thecal sac effacement, possible mild spinal canal narrowing and mild bilat eral neural foraminal stenosis. L4-L5: Anterolisthesis of L4 and L5 with uncovering of the disc material and facet arthropathy causin g moderate spinal canal stenosis and mild to moderate bilateral neural foraminal narrowing. There are bilateral L4 pars defects suspected. L5-S1: No spinal canal or neural foraminal stenosis is identified. Other: None IMPRESSION: 1. No acute fracture or traumatic subluxation of the lumbosacral spine. 2. Multilevel degenerative changes of the lumbar spine as above. [facility], , 06/01/2024 4:39 PM
[2024-06-01] MEDS: LIDOCAINE 4% PATCH TOPICAL ONE (17:24)
[2024-06-01 17:42] VITALS: BP 115/54
== END 2024-06-01 17:41 | disposition home or self-care (01) ==
LOC: EC 14:57
DX: S00.03XA Contusion of scalp, initial encounter (principal); M54.9 Dorsalgia, unspecified; Z90.89 Acquired absence of other organs; W10.9XXA Fall (on) (from) unspecified stairs and steps, initial encounter
CPT/HCPCS: 72125; 72131; 70450; 99284; 96372; J2270

== ENCOUNTER 2024-06-14 10:29 | Emergency (ER) | payer MEDICARE ==
[2024-06-14 10:36] VITALS: RESP 18
--- NOTE | 2024-06-14 11:11 | ED ---
Back Pain HPI - General Chief Complaint: Back Pain/Injury Stated Complaint: back pain/previous fall Time Seen by Provider: 06/14/24 11:06 Source: patient, RN notes reviewed Limitations: no limitations - History of Present Illness Initial Comments: 78-year-old female presenting to the ER with chief complaint of low back pain x 2 weeks status post mechanical fall. Patient states she fell backwards, hitting the back of her head and lower back on the ground. She was seen in the ER after the incident where she underwent CT brain and C-spine as well as CT lumbar spine. Both were negative. Patient states since the fall, she continues to experience right-sided low back pain worse with standing up straight, deep inspiration, and movement. She is able to ambulate but endorses pain. Pain does not radiate. Denies numbness, tingling, weakness of bilateral lower extremities. Denies urinary symptoms. Denies saddle anesthesia. 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 - Related Data Home Medications Medication Instructions Recorded Confirmed Atorvastatin [Lipitor] 20 mg PO HS 01/06/14 06/01/24 Timolol 0.5% Ophth Soln [Timoptic 1 drop BOTH EYES DAILY 05/23/20 06/01/24 0.5% Ophth Soln] Amiodarone HCl [Pacerone] 200 mg PO DAILY 09/20/20 06/01/24 Metoprolol Tartrate 12.5 mg PO BID 09/20/20 06/01/24 Rivaroxaban [Xarelto] 20 mg PO HS 09/20/20 06/01/24 Levothyroxine Sodium [Synthroid] 50 mcg PO MOTUTHFRSA 12/08/23 06/01/24 Levothyroxine Sodium [Synthroid] 75 mcg PO SUWE 12/08/23 06/01/24 Empagliflozin [Jardiance] 10 mg PO HS 06/01/24 06/01/24 Previous Rx's Medication Instructions Recorded Spironolactone [Aldactone] 25 mg PO DAILY #30 tab 12/23/16 Lidocaine 5% Patch [Lidoderm 5% 1 patch TOPICAL DAILY #30 patch 06/01/24 Patch] Acetaminophen-Codeine 300-30mg 1 tab PO Q4H PRN #18 tablet 06/14/24 [Tylenol #3] Cyclobenzaprine [Flexeril] 10 mg PO TID PRN #15 tab 06/14/24 Allergies Allergy/AdvReac Type Severity Reaction Status Date / Time No Known Allergies Allergy Verified 06/14/24 10:33 Review of Systems ROS Statement: Those systems with pertinent positive or pertinent negative responses have been documented in the HPI. ROS Other: All systems not noted in ROS Statement are negative. Past Medical History Past Medical History: Atrial Fibrillation, Hyperlipidemia, Hypertension, Osteoarthritis (OA) Additional Past Medical History / Comment(s): glaucoma (had surgery). History of Any Multi-Drug Resistant Organisms: None Reported Past Surgical History: Cardiac Ablation, Heart Catheterization, Tonsillectomy, Tubal Ligation Additional Past Surgical History / Comment(s): EYE SURGERY-GLAUCOMA. CARDIOVERSION X 3 Past Anesthesia/Blood Transfusion Reactions: No Reported Reaction Additional Past Anesthesia/Blood Transfusion Reaction / Comment(s): no hx blood transfusion Past Psychological History: No Psychological Hx Reported Smoking Status: Never smoker Past Alcohol Use History: None Reported Past Drug Use History: None Reported - Past Family History Father Family Medical History: Cancer Additional Family Medical History / Comment(s): prostate and colon Son(s) Family Medical History: Cancer Additional Family Medical History / Comment(s): lymphoma General Exam Limitations: no limitations General appearance: alert, in no apparent distress Head exam: Present: atraumatic, normocephalic, normal inspection Respiratory exam: Present: normal lung sounds bilaterally. Absent: respiratory distress, wheezes, rales, rhonchi, stridor Cardiovascular Exam: Present: regular rate, normal rhythm, normal heart sounds. Absent: systolic murmur, diastolic murmur, rubs, gallop, clicks GI/Abdominal exam: Present: soft, normal bowel sounds. Absent: distended, tenderness, guarding, rebound, rigid Back exam: Present: normal inspection, full ROM, tenderness (Tenderness over right lumbar portion of spine, no overlying skin changes), other (Full strength of bilateral hips, no saddle anesthesia, full sensation and DP pulses bilaterally). Absent: CVA tenderness (R), CVA tenderness (L) Neurological exam: Present: alert, oriented X3 Psychiatric exam: Present: normal affect, normal mood Skin exam: Present: warm, dry, intact, normal color. Absent: rash Course Vital Signs 06/14/24 10:33 Temperature 97.5 F L Pulse Rate 46 L Respiratory 18 Rate Blood Pressure 151/80 O2 Sat by Pulse 98 Oximetry Medical Decision Making - Medical Decision Making Was pt. sent in by a medical professional or institution (, JOLENE, INTER COM SERVICER, urgent care, hospital, or care home...) When possible be specific @ -No Did you speak to anyone other than the patient for history (EMS, parent, family, police, friend...)? What history was obtained from this source @ -No Did you review nursing and triage notes (agree or disagree)? Why? @ -I reviewed and agree with nursing and triage notes Were old charts reviewed (outside hosp., previous admission, EMS record, old EKG, old radiological studies, urgent care reports/EKG's, care home records)? Report findings @ -Previous ER visit reviewed including CT lumbar spine which was negative for acute process Differential Diagnosis (chest pain, altered mental status, abdominal pain women, abdominal pain men, vaginal bleeding, weakness, fever, dyspnea, syncope, headache, dizziness, GI bleed, back pain, seizure, CVA, palpatations, mental health, musculoskeletal)? @ -Differential Musculoskeletal Muscular strain, contusion, ligament sprain, fracture, arthritis, septic arthritis, bursitis, cellulitis, muscle spasm, nerve compression, DVT, arterial occlusion, herpes zoster, electrolyte abnormality, tumor.... This is not meant to be in all inclusive list EKG interpreted by me (3pts min.). @ -As above X-rays interpreted by me (1pt min.). @ -X-ray right ribs revealed acute fracture of posterior ninth rib, subacute fracture of ribs 7, and what appears to be old fractures of ribs 5 and 6, no pneumothorax CT interpreted by me (1pt min.). @ -None done U/S interpreted by me (1pt. min.). @ -None done What testing was considered but not performed or refused? (CT, X-rays, U/S, labs)? Why? @ -None What meds were considered but not given or refused? Why? @ -None Did you discuss the management of the patient with other professionals (professionals i.e. , OJLENE, INTER COM SERVICER, lab, RT, psych nurse, social service manager, bright cutter, teacher, air antisubmarine officer, major case detective)? Give summary @ -No Was smoking cessation discussed for >3mins.? @ -No Was critical care preformed (if so, how long)? @ -No Were there social determinants of health that impacted care today? How? (Homelessness, low income, unemployed, alcoholism, drug addiction, transportation, low edu. Level, literacy, decrease access to med. care, correction, rehab)? @ -No Was there de-escalation of care discussed even if they declined (Discuss DNR or withdrawal of care, Hospice)? DNR status @ -No What co-morbidities impacted this encounter? (DM, HTN, Smoking, COPD, CAD, Cancer, CVA, ARF, Chemo, Hep., AIDS, mental health diagnosis, sleep apnea, morbid obesity)? @ -None Was patient admitted / discharged? Hospital course, mention meds given and rout e, prescriptions, significant lab abnormalities, going to OR and other pertinent info. @ -Discharged. This is a 78-year-old female presenting with low back pain x 2 weeks status post fall. CT lumbar spine obtained after fall was negative. Vital signs remarkable for bradycardia at 46 bpm. Patient states this is chronic and she follows closely with weed inspector Dr. Person and they are aware of heart rate is she is on a beta-demetria. Patient is neurovascularly intact. There is point tenderness to palpation on right side of back. X-ray right ribs reveals acute posterior lateral ninth rib fracture and subacute fracture of rib 7. Discussed results with patient. Patient was provided with incentive spirometer. As this fall occurred 2 weeks ago, I believe it is safe to discharge patient home with analgesics and strict return precautions. Patient is agreeable to plan. Case was discussed with my ED attending Dr. Johnston. Undiagnosed new problem with uncertain prognosis? @ -No Drug Therapy requiring intensive monitoring for toxicity (Heparin, Nitro, Insulin, Cardizem)? @ -No Were any procedures done? @ -No Diagnosis/symptom? @ -Right rib fracture Acute, or Chronic, or Acute on Chronic? @ -Acute Uncomplicated (without systemic symptoms) or Complicated (systemic symptoms)? @ -Uncomplicated Side effects of treatment? @ -No Exacerbation, Progression, or Severe Exacerbation? @ -No Poses a threat to life or bodily function? How? (Chest pain, [place], [place], pneumonia, PE, COPD, DKA, ARF, appy, cholecystitis, CVA, Diverticulitis, Homicidal, Suicidal, threat to staff... and all critical care pts) @ -No Disposition Clinical Impression: Rib fracture Disposition: HOME SELF-CARE Condition: Stable Instructions (If sedation given, give patient instructions): Rib Fracture (ED) Additional Instructions: Take Flexeril and Tylenol threes as needed for pain. Use incentive spirometer 10 times hourly while awake to prevent secondary infection. Please return to the Emergency Department if symptoms worsen or any other concerns. Prescriptions: Cyclobenzaprine [Flexeril] 10 mg PO TID PRN #15 tab PRN Reason: Muscle Spasm Acetaminophen-Codeine 300-30mg [Tylenol #3] 1 tab PO Q4H PRN #18 tablet PRN Reason: pain Is patient prescribed a controlled substance at d/c from ED?: No Referrals: Unique Hilliard MD [Primary Care Provider] - 1-2 days Time of Disposition: 12:59
[2024-06-14] MEDS: CYCLOBENZAPRINE 5 MG TAB PO STA (11:27)
--- NOTE | 2024-06-14 12:31 | XR ---
EXAMINATION TYPE: XR ribs RT w pa chest xray DATE OF EXAM: 06/14/2024 11:22 AM COMPARISON: None. CLINICAL INDICATION: Female, 78 years old with history of right rib pain, TECHNIQUE: 2 view(s) obtained ribs. Same supplemented with frontal chest FINDINGS: Size is normal. Pulmonary vasculature is normal. Some mild treatment may be within the right lung. No pneumothorax is evident. There is a displaced rib fracture lateral right ninth rib. Additional fractures of the posterior late ral right 5 and 6 may be present. This could be old. Correlate with history. A partially healing frac ture of the posterior lateral right seventh and eighth rib may be present. IMPRESSION: 1. Rib fractures posterior lateral right ribs reveal no pneumothorax is evident. 2. The right lateral ninth rib fracture appears to be acute. The seventh rib fracture appears to be s ubacute, and right fifth and sixth rib fractures may be old. Correlate with the patient's history. [facility], , 06/14/2024 12:29 PM
[2024-06-14] MEDS: ACET/COD 300 MG/30 MG STARTER PACK 6 TAB BTL PO STA (13:08)
[2024-06-14 13:16] VITALS: BP 148/69; PULSE 58; TEMP 98.1
== END 2024-06-14 13:24 | disposition home or self-care (01) ==
LOC: EC 10:29
DX: S22.31XA Fracture of one rib, right side, initial encounter for closed fracture (principal); W01.198A Fall on same level from slipping, tripping and stumbling with subsequent striking against other object, initial encounter
CPT/HCPCS: 99283